=== PATIENT | female | born 1955 | race Caucasian/White ===

== ENCOUNTER 2016-07-04 05:06 | Day surgery (SDC) | payer OTHER ==
[~2016-07-04] VITALS: Ht 167.6 cm; Wt 59.4 kg
--- NOTE | ~2016-07-04 | OP ---
PATIENT NAME: SUSY HAM MEDICAL RECORD: [id number] :59 LOCATION:D.OPS ADMISSION DATE: SURGEON: VALERIE DIAL MD DATE OF OPERATION: 07/04/2016 PREOPERATIVE DIAGNOSES: 1. Right inguinal lymphadenopathy. 2. History of right lower extremity malignant melanoma. 3. Tobacco dependence syndrome. POSTOPERATIVE DIAGNOSES: 1. Right inguinal lymphadenopathy. 2. History of right lower extremity malignant melanoma. 3. Tobacco dependence syndrome. PROCEDURE: Excisional right inguinal lymph node biopsy. SURGEON: Valerie Dial MD. REPORT OF PROCEDURE: The patient's right groin was prepped and draped in sterile fashion. An oblique incision was made overlying the large inguinal lymph node. Electrocautery was used to dissect through the subcutaneous tissues and using electrocautery, we came around this large mass. The lymph node was about 2.5-3 cm in greatest diameter. Once the mass was completely excised, it was sent off as a permanent specimen to pathology. The wound was irrigated out with normal saline and any bleeding that was found was treated with electrocautery or tied off with 3-0 silks. At the conclusion of the case, there was no sign of any active bleeding and there was no sign of any further enlarged lymphadenopathy. The subcutaneous tissues were reapproximated with interrupted 3-0 Vicryls and the skin was closed with running subcutaneous 5-0 Monocryl. A 10 mL of 0.25% Marcaine with epinephrine was infused into the surrounding tissues and the wound was dressed appropriately. COMPLICATIONS: None. CONDITION: Stable. ANESTHESIA: General endotracheal and local. BLOOD LOSS: Minimal. TRANSINT:[id number] Voice Confirmation ID: [id number] DOCUMENT ID: [id number] VALERIE DIAL MD CC: MONSERRAT CANCHOLA DO [id number] DICTATION DATE: 07/04/16 0845 EVENT SECURITY OFFICER: 07/04/16 1803 [facility] 07/04/[address] [place] [id number] [place] [id number]
[2016-07-04 06:14] VITALS: BP 105/65; Ht 167.6 cm; Wt 59.4 kg
[2016-07-04 07:41] LABS: BASOPHILS 0.6 % (0-2); EOSINOPHILS 4.2 % (0-7); HEMATOCRIT 42.4 % (36.0-48.0); HEMOGLOBIN 13.7 g/dL (12-16); IMMATURE GRANULOCYTES 0.1 % (0-5); LYMPHOCYTES 35.9 % (15-50); MCH 31.1 pg (26.0-34.0); MCHC 32.3 g/dL (31.0-37.0); MCV 96.4 fL (80.0-100.0); MEAN PLATELET VOLUME 11.1 fL (7.4-10.4); NEUTROPHILS 52.2 % (40-80); PLATELET COUNT 173 10x3/uL (130-400); RDW 13.7 % (11.5-14.5); WBC 7.2 10x3/uL (4.8-10.8)
[2016-07-04 07:48] LABS: ANION GAP 13.1 mmol/L (8-16); CALCIUM 8.4 mg/dL (8.5-10.1); CARBON DIOXIDE 28.1 mmol/L (21.0-32.0); CREATININE - SERUM 0.9 mg/dL (0.6-1.3); POTASSIUM - SERUM 4.2 mmol/L (3.5-5.1)
[2016-07-04 07:49] LABS: APTT 32.4 SECONDS (22.8-39.4); INR 0.98 (0.85-1.17); PROTIME 12.8 SECONDS (11.6-15.0)
[2016-07-04] MEDS ORDERED: HYDROCODONE-APA1 TAB PO (08:37)
--- NOTE | 2016-07-04 10:24 | NUR ---
0945 IV DC WITH CATHER TIP INTACT
== END 2016-07-04 10:00 | disposition home or self-care (01) ==
LOC: D.OPS 05:06 → D.PAN 07:30 → D.OPS 07:30
PROVIDERS: Anesthesiology; Surgery
DX: R59.0 Localized enlarged lymph nodes (principal); F17.200 Nicotine dependence, unspecified, uncomplicated; Z85.820 Personal history of malignant melanoma of skin; Z01.812 Encounter for preprocedural laboratory examination

== ENCOUNTER → 2016-12-01 13:11 | Outpatient (CLI) | payer OTHER ==
[2016-07-04 06:14] VITALS: BMI 21.1
[~2016-12-01 13:11] MED LIST: HYDROCODONE-APA1 TAB PO
== END | disposition home or self-care (01) ==
LOC: D.LABREF 13:11
DX: C43.9 Malignant melanoma of skin, unspecified (principal); R59.0 Localized enlarged lymph nodes

== ENCOUNTER 2017-12-04 06:58 | Day surgery (SDC) | payer OTHER ==
[~2017-12-04] VITALS: Ht 320 cm; Wt 60.8 kg
--- NOTE | ~2017-12-04 | OP ---
PATIENT NAME: SUSY HAM MEDICAL RECORD: [id number] :59 LOCATION:DJACKELIN ADMISSION DATE: SURGEON: KEVIN DIAL MD DATE OF OPERATION: 12/04/2017 PREOPERATIVE DIAGNOSES: 1. Metastatic malignant melanoma to the right groin. 2. Tobacco dependence syndrome. 3. Right inguinal lymphadenopathy. POSTOPERATIVE DIAGNOSES: 1. Metastatic malignant melanoma to the right groin. 2. Tobacco dependence syndrome. 3. Right inguinal lymphadenopathy. PROCEDURE: Excision of right axillary lymph nodes times 5. SURGEON: Kevin Dial MD REPORT OF PROCEDURE: The patient's right groin was prepped and draped in sterile fashion. An old skin incision was reopened overlying these masses. Using electrocautery, we came around all of these enlarged lymphatic tissues totaling 5. Once all of these tissues were completely excised and the wound was irrigated out and care was taken to assure there was no sign of any bleeding, the subcutaneous tissues were then reapproximated with interrupted 3-0 Vicryl and the skin was closed with running subcutaneous 5-0 Monocryl. A 10 mL of 0.25% Marcaine with epinephrine was infused into the surrounding tissues and the wound was dressed appropriately. COMPLICATIONS: None. CONDITION: Stable. ANESTHESIA: General endotracheal and local. BLOOD LOSS: Minimal. TRANSINT:[id number] Voice Confirmation ID: [id number] DOCUMENT ID: [id number] KEVIN DIAL MD at 1409 CC: TUAN RAYO MD and MONSERRAT CANCHOLA [id number] DICTATION DATE: 12/04/17 1055 OPERATIONS BUSINESS PARTNER: 12/04/17 1101 [facility] 12/04/[address] [address]
[~2017-12-04 06:58] MED LIST changes: +ALENDRONATE SOD70 MG PO; +ANORO ELLIPTA1 EACH INH; +IBUPROFEN800 MG PO; +NEURONTIN 300300 MG PO
[2017-12-04 08:27] LABS: BASOPHILS 0.3 % (0-2); EOSINOPHILS 2.3 % (0-7); HEMOGLOBIN 14.4 g/dL (12-16); IMMATURE GRANULOCYTES 0.2 % (0-5); MCH 31.5 pg (26.0-34.0); MCHC 33.5 g/dL (31.0-37.0); MCV 94.1 fL (80.0-100.0); MEAN PLATELET VOLUME 10.3 fL (7.4-10.4); MONOCYTES 11.4 % (2-11); NEUTROPHILS 63.8 % (40-80); PLATELET COUNT 164 10x3/uL (130-400); RBC 4.57 10x6/uL (4.00-5.40); RDW 13.7 % (11.5-14.5); WBC 6.1 10x3/uL (4.8-10.8)
[2017-12-04 08:39] LABS: APTT 32.4 SECONDS (22.8-39.4); INR 1.03 (0.85-1.17); PROTIME 13.1 SECONDS (11.6-15.0)
[2017-12-04 08:41] LABS: ALBUMIN 3.3 g/dL (3.4-5.0); ANION GAP 12.7 mmol/L (8-16); BILIRUBIN - TOTAL 0.28 mg/dL (0.2-1.3); CALCIUM 8.3 mg/dL (8.5-10.1); CARBON DIOXIDE 26.7 mmol/L (21.0-32.0); POTASSIUM - SERUM 4.4 mmol/L (3.5-5.1)
[2017-12-04 08:43] VITALS: BP 126/70; Ht 320 cm; Wt 60.8 kg
[2017-12-04] MEDS ORDERED: NORCO 10-325 TA1 TAB PO (10:52)
== END 2017-12-04 12:42 | disposition home or self-care (01) ==
LOC: D.OPS 06:58 → D.PAN 09:00 → D.OPS 09:00
PROVIDERS: Surgery
DX: C77.4 Secondary and unspecified malignant neoplasm of inguinal and lower limb lymph nodes (principal); F17.200 Nicotine dependence, unspecified, uncomplicated; Z01.812 Encounter for preprocedural laboratory examination

== ENCOUNTER 2018-03-04 13:41 | Inpatient (IN) | payer OTHER ==
[~2018-03-04] VITALS: Ht 167.6 cm; Wt 59.1 kg
[2018-03-04] VITALS (7 sets, daily range): BP systolic 92–103; BP diastolic 55–70
--- NOTE | ~2018-03-04 | CN ---
PATIENT NAME:SUSY HAM MEDICAL RECORD: [id number] : 59 LOCATION:ChelsieED[facility].E05- ADMIT DATE: 03/04/18 ACCOUNT: [id number] CONSULTING PHYSICIAN: KRISTAL QUINN MD REFERRING PHYSICIAN: TED HWANG MD DATE OF CONSULTATION: 03/04/2018 DIAGNOSES: 1. Elevated troponin compatible with non-Q-wave myocardial infarction. 2. Chest tightness. 3. Smoking history. 4. Malignant melanoma undergoing treatment by Dr. Fish, chemotherapy. HISTORY OF PRESENT ILLNESS: Ms. Ham has no previous cardiac history. She presents with generalized weakness, but she has been having chest pressure, chest tightness and shortness of breath. Her troponin is mildly elevated. PHYSICAL EXAMINATION: GENERAL APPEARANCE: Well-nourished, well-developed, appears stated age. Level of distress, comfortable. PSYCHIATRIC: Mental status, alert, normal affect. Orientation, oriented to time, place and person. EYES: Lids and conjunctiva, noninjected. No discharge, no pallor. ENT: Lips, teeth, gums, normal dentition. Oropharynx, no cyanosis, no pallor. NECK: Carotid arteries, bilateral normal upstroke, no bruits, no thrills. JUGULAR VEINS: No jugular venous pressure or distention. CERVICAL LYMPH NODES: Nontender, nonenlarged. THYROID: Not enlarged. Nontender. No nodules. LUNGS: Respiratory effort, unlabored. CHEST: Normal curvature. No thoracic deformity. No chest wall tenderness. Percussion, resonant. Auscultation, clear. No wheezes, no rales, no rhonchi. CARDIOVASCULAR: Precordial exam, nondisplaced. No heaves or pericardial thrills. Rate and rhythm, regular. Heart sounds, normal S1, normal S2. No S3, no gallop, no rub. Systolic murmur, not heard. Diastolic murmur, not heard. EXTREMITIES: No cyanosis, no edema. Peripheral pulses, full and equal in all extremities, except as noted. No bruits appreciated. ABDOMEN: Soft, nondistended. Normal aorta. No bruit. Nontender. No masses. Liver, nontender, no hepatomegaly. Spleen, nontender, no splenomegaly. MUSCULOSKELETAL: No joint tenderness. No joint swelling. No erythema. NEUROLOGICAL: Normal gait, normal strength, normal tone. SKIN: Warm and dry. OVERALL IMPRESSION: Elevated troponin. At this time, her cancer prognosis is overall good with chemotherapy and she has been told by Dr. Fish that she has no impending mortality from this. Hence we will proceed with coronary angiography. Further care depends upon the findings of the angiography. Her pulse rate is low at 62. Hence, we will not start beta-flores therapy. She has been told in the past that she has hyperlipidemia, but has not tolerated statin therapy, hence we will not initiate statin therapy as well. Her blood pressure is 100/56. We will only institute aspirin. Give Plavix tomorrow after the cardiac catheterization if intervention is undertaken. TRANSINT:[id number] Voice Confirmation ID: [id number] DOCUMENT ID: [id number] CONSULT REPORT [id number] SUSY HAM JEFFREY MD CC: [id number] DICTATION DATE: 03/04/18 1628 BENCH EXAMINER: 03/04/18 2321 ADM IN [facility] [address] [place] [id number]
--- NOTE | ~2018-03-04 | HEMODYNAMI ---
PATIENT:SUSY HAM MEDICAL RECORD: [id number] : 59 [facility]# [id number] ADMISSION DATE: 03/04/18 Generatedon:03/05/20188:59 Patient name: SUSY HAM Patient #: [id number] SSN: : 1955 Date of study: 03/05/2018 Page: Of Hemodynamic Procedure Report Patient Data Patient Demographics Procedure consent was obtained First Name: SUSY Gender: Female Last Name: FATOUMATA : 1955 [facility] Initial: BRIAN Age: 62 year(s) Patient #: [id number] Race: Unknown Additional ID: [id number] Contact details [address]: [address] [place] [address] State: [place] City: [place] Zip code: [address] Admission Admission Data Admission Date: 03/04/2018 Admission Time: 17:41 Room #: D.E05 Lab Results Lab Result Date: 03/05/2018 Lab Result Time: 0:00 Biochemistry Name Units Result Min Max BUN mg/dl 27 --(----)-* 7 18 Creatinine mg/dl 1.1 --(--*-)-- 0.6 1.3 CBC Name Units Result Min Max Hemoglobin g/dl 16.3 --(--*-)-- 13.5 17.5 Procedure Procedure Types Cath Procedure Diagnostic Procedure [facility] w/Coronaries Procedure Description Procedure Date Procedure Date: 03/05/2018 Procedure Start Time: 8:46 Procedure End Time: 8:56 Procedure Staff Name Function Cecelia Mattson RT Monitor Brittnee Fitzgerald RT Scrub Americo Reddy RN Nurse Sean Merino RN Restaurant Assistant Manager Jose Bravo MD Performing Physician Procedure Data Cath Procedure Fluoroscopy Diagnostic fluoroscopy Total fluoroscopy Time: 1.1 time: 1.1 min min Diagnostic fluoroscopy Total fluoroscopy dose: 155 dose: 155 mGy mGy Contrast Material Contrast Material Type Amount (ml) Isovue 300 40 Entry Location Entry Primary Successful Side Size Upsize Upsize Entry Closure Succes sful Closure Location (Fr) 1 (Fr) 2 (Fr) Remarks Device Remarks Femoral Left 6 Fr Exoseal artery Short Estimated blood loss: 5 ml Diagnostic catheters Device Type Used For End Catheter Placement MULTIPACK Pigtail 5 Fr LV Angiography catheter MULTIPACK JL 4.0 5Fr Left Coronary catheter Angiography MULTIPACK 3DRC 5Fr Right Coronary catheter Angiography Procedure Complications No complications Procedure Medications Medication Administration Route Dosage Oxygen etCO2 Nasal cannula 2 l/min Lidocaine 2% added to field 20 Heparin Flush Bag added to field 2 bags (1000units/500ml NS) 0.9% NaCl I.V. 100 ml/hr Versed I.V. 1 mg Fentanyl I.V. 50 mcg Hemodynamics Rest HGB: 16.3 (g/dl) Heart Rate: 73 (bpm) Pressure Samples Time Site Value (mmHg) Purpose Heart Use Rate(bpm) 8:48 LV 79/7,11 Snapshot 63 Snapshots Pre Cath Intra NCS Post Cath Vital Signs Time Heart Resp SPO2 etCO2 NIBP Rhythm Pain Sedation Rate (ipm) (%) (mmHg) (mmHg) Status Level (bpm) 8:38:37 71 18 100 35.7 91/73(82) NSR 0 (11) 10(A) , No pain 8:42:37 73 13 100 33.5 87/61(73) NSR 0 (11) 10(A) , No pain 8:46:34 76 12 100 29.8 90/60(72) NSR 0 (11) 10(A) , No pain 8:50:34 77 11 98 34.2 87/57(69) NSR 0 (11) 9(A) , No pain 8:54:27 69 12 100 22.3 100/74(85) NSR 0 (11) 10(A) , No pain Medications Time Medication Route Dose Verified Delivered Reason Notes Effe ctiveness by by 8:38:07 Oxygen etCO2 2 Jose Driscoll used for Nasal l/min Shelly Reddy RN procedure cannula 8:38:16 Lidocaine 2% added 20ml Jose Garcia for local to vial Shelly Bravo MD anesthetic field 8:38:23 Heparin Flush added 2 Jose Garcia used for Bag to bags Shelly Bravo MD procedure (1000units/500ml field NS) 8:38:30 0.9% NaCl I.V. 100 Jose Driscoll Per ml/hr Shelly Reddy RN physician 8:45:47 Versed I.V. 1 mg Jose Driscoll for Shelly Reddy RN sedation 8:45:52 Fentanyl I.V. 50 Jose Driscoll for mcg Shelly Reddy RN sedation Procedure Log Time Note 8:26:10 Sean Merino RN sent for patient. Start room use. 8:26:12 Time tracking: Regular hours (M-F 7:00 - 5:00) 8:26:16 Plan of Care:Hemodynamics will remain stable., Cardiac rhythm will remain stable., Comfort level will be maintained., Respiratory function will remain adequate., Patient/ family verbilizes understanding of procedure., Procedure tolerated without complication., Recovers from procedure without complications.. 8:26:51 Patient received from ED to CCL 2 Alert and oriented. Tansferred to table in Supine position. 8:26:52 Warm blankets applied, and arjun hugger turned on for patient comfort. 8:26:52 Correct patient and procedure confirmed by team. 8:26:54 Signed procedure consent form obtained from patient. 8:26:55 ECG and BP/O2 sat monitors applied to patient. 8:37:41 Baseline sample Acquired. 8:37:41 Vital chart was started 8:38:07 Oxygen 2 l/min etCO2 Nasal cannula was administered by Americo Reddy RN; used for procedure; 8:38:16 Lidocaine 2% 20ml vial added to field was administered by Jose Bravo MD; for local anesthetic; 8:38:23 Heparin Flush Bag (1000units/500ml NS) 2 bags added to field was administered by Jose Bravo MD; used for procedure; 8:38:30 0.9% NaCl 100 ml/hr I.V. was administered by Americo Reddy RN; Per physician; 8:39:23 Rhythm: sinus rhythm 8:39:25 Full Disclosure recording started 8:39:31 H&P Date Dictated: 03/05/2018 New H&P dictated by physician.. 8:39:33 Pre-procedure instructions explained to patient. 8:39:33 Pre-op teaching completed and patient verbalized understanding. 8:39:35 Family in waiting room. 8:39:36 Patient NPO since Midnight. 8:39:43 Is the patient allergic to Iodine/contrast media? No. 8:39:44 Was the patient premedicated? No 8:39:46 Is patient on blood thinner?No 8:39:47 Patient diabetic? No. 8:39:50 Previous problem with sedation/anesthesia? No ? 8:39:52 Snore? No 8:39:53 Sleep apnea? No 8:39:54 Deviated septum? No 8:39:55 Opens mouth fully? Yes 8:39:55 Sticks out tongue? Yes 8:39:59 Airway obstruction? Yes copd 8:40:39 Dentures? No ? 8:40:44 Pre procedure: right dorsailis pedis pulse Doppler 8:40:59 Pre procedure: left dorsailis pedis pulse Doppler 8:41:04 Patient pain scale 0/10 ?. 8:41:11 IV patent on arrival in left antecubital with 0.9% NaCl at [facility]. 8:41:13 Lab results completed and on chart. 8:41:18 Left groin area was prepped with chlora-prep and draped in sterile fashion 8:41:19 Alarms reviewed by R. N. 8:41:19 Sharps counted by scrub and verified by R.N. 8:43:33 Lab Result : Hemoglobin 16.3 g/dl 8:43:33 Lab Result : Creatinine 1.1 mg/dl 8:43:33 Lab Result : BUN 27 mg/dl 8:44:12 Physician arrived 8:44:12 --------ALL STOP TIME OUT------ 8:44:13 Final Timeout: patient, procedure, and site verified with staff and physician. All members of the team are in agreement. 8:44:15 Left groin site verified by team. 8:44:18 Physical assessment completed. ASA score P 2 - A patient with mild systemic disease as per Jose Bravo MD. 8:44:22 Sedation plan: IV Moderate Sedation Medication:Versed, Fentanyl 8:44:25 Use device set Femoral Dx 8:44:26 ACIST Syringe (69760) opened to sterile field. 8:44:26 Bag Decanter () opened to sterile field. 8:44:27 Medline Cath Pack ([id number]) opened to sterile field. 8:44:27 DIAGNOSTIC WIRE .035 260cm J wire (847018) opened to sterile field. 8:44:28 ACIST Hand Control (86612) opened to sterile field. 8:44:29 ACIST Manifold (41345) opened to sterile field. 8:44:29 DIAGNOSTIC Multipack 5Fr catheter set (PP8665) opened to sterile field. 8:44:30 Tegaderm 4 x 4 (1626W) opened to sterile field. 8:44:51 SHEATH 6FR [place] (DYQ142) opened to sterile field. 8:45:46 Procedure started. 8:45:47 Versed 1 mg I.V. was administered by Americo Reddy RN; for sedation; 8:45:52 Fentanyl 50 mcg I.V. was administered by Americo Reddy RN; for sedation; 8:46:02 Local anesthetic to left femerol artery with Lidocaine 2% by Cecelia LUCAS(R).INITIAL ACCESS ONLY 8:48:25 A 6 Fr Short sheath was inserted into the Left Femoral artery 8:48:32 A MULTIPACK Pigtail 5 Fr catheter was advanced over the wire and used for LV Angiography. 8:48:40 LV hemodynamics recorded. 8:48:41 LV gram done using ADAME 8:48:44 Injector settings: Ml/sec: 5, Volume: 15, 8:48:50 EF : 50 % 8:49:04 Catheter removed. 8:49:16 A MULTIPACK JL 4.0 5Fr catheter was advanced over the wire and used for Left Coronary Angiography. 8:50:06 LCA angiography performed. 8:50:09 Injector settings: Ml/sec: 3, Volume: 6, 8:50:35 Catheter removed. 8:50:41 A MULTIPACK 3DRC 5Fr catheter was advanced over the wire and used for Right Coronary Angiography. 8:51:18 RCA angiography performed. 8:51:21 Injector settings: Ml/sec: 3, Volume: 6, 8:51:56 Catheter removed. 8:52:11 EXOSEAL 6Fr (EX600) opened to sterile field. 8:52:38 Sheath removed intact; hemostasis achieved with Exoseal to the Left Femoral artery. 8:52:40 Procedure ended.(Physican Out) 8:52:47 Fluoroscopy time 01.10 minutes. 8:52:51 Fluoroscopy dose: 155 mGy 8:52:51 Flurop Dose total: 155 8:55:33 Contrast amount:Isovue 300 40ml. 8:55:35 Sharps counted by scrub and verified by R.N. 8:55:38 Insertion/operative site no bleeding no hematoma. 8:55:42 Post-op/insertion site Left Femoral artery dressed using a 4 x 4 and Tegaderm. 8:55:46 Post left femerol artery:stable 8:55:48 Post Procedure Pulses reassessed and unchanged 8:55:50 Post procedure rhythm: unchanged. 8:55:53 Estimated blood loss: 5 ml 8:55:55 Post procedure instruction explained to patient.Patient verbalizes understanding. 8:55:55 Patient needs reinforcement of post procedure teaching. 8:56:04 Procedure and supply charges have been captured, reviewed, submitted and are correct. 8:56:08 Procedure Complication : No complications 8:56:12 Vital chart was stopped 8:56:12 See physician's report for complete and final results. 8:56:15 Report given to Pre/Post Procedure Room. 8:56:18 Patient transfered to Pre/Post Procedure Room with Stretcher. 8:56:21 Procedure ended. 8:56:21 Full Disclosure recording stopped 8:56:25 End room use (Document Last) Device Usage Item Name Manufacture Quantity Catalog Hospital Part Current Minimal L ot# / Number Charge Number Stock Stock Serial# Code ACIST Acist 1 89873 [id number] 268895 802386 20 Syringe Medical (83939) Systems Inc Bag Microtek 1 2001S 310993 99234 158571 5 Decanter Medical Inc. () Medline Medline 1 [id number] 680065 77630 554290 5 Cath Pack ([id number]) DIAGNOSTIC St Lester 1 673071 428505 104297 215014 30 WIRE .035 260cm J wire (755126) ACIST Hand Acist 1 36264 530174 428566 514010 5 Control Medical (61458) Systems Inc ACIST Acist 1 80183 633367 118849 027329 5 Manifold Medical (48310) Systems Inc DIAGNOSTIC Cardinal 1 NO9097 400880 73727 311022 30 Multipack Health 5Fr catheter set (UN4074) Tegaderm 4 3M 1 1626W 575349 334830 248312 5 x 4 (1626W) SHEATH 6FR Terumo 1 KWL743 883186 207977 310218 40 [place] (DYT158) MULTIPACK Cardinal 1 490220 5 Pigtail 5 Health Fr catheter MULTIPACK Cardinal 1 007534 5 JL 4.0 5Fr Health catheter MULTIPACK Cardinal 1 054821 5 3DRC 5Fr Health catheter EXOSEAL 6Fr Cardinal 1 EX600 201125 526615 979831 10 (EX600) Health Signature Audit [place] Stage Time Signature Unsigned Intra-Procedure 03/05/2018 Brittnee Fitzgerald 8:58:53 AM RT(R) Signatures Monitor : Cecelia Mattson Signature : RT Date : Time : [id number] [place] [address]
--- NOTE | ~2018-03-04 | EC ---
PATIENT:SUSY HAM DATE OF SERVICE: 03/04/18 SEX: F MEDICAL RECORD: [id number] DATE OF : 59 LOCATION:D.M2 D.212 AGE OF PATIENT: 62 ADMISSION DATE: 03/04/18 REFERRING PHYSICIAN: INTERPRETING PHYSICIAN: KRISTAL BRAVO MD ECHOCARDIOGRAM REPORT ECHO CHARGES 4 ECHO COMPLETE Date: 03/05/18 CLINICAL DIAGNOSIS: SWELLING/SOB/LOWER EDEMA ECHOCARDIOGRAPHIC MEASUREMENTS (adult normal given) AC root (d.<3.7cm) 3.8 cm LV Septum d (<1.2 cm> 1.4 cm Valve Excursion 1.4 cm LV Septum (systole) 1.5 cm Left Atria (s.<4.0cm> 3.6 cm LVPW d(<1.2cm) 1.2 cm RV (d.<2.3cm) 2.9 cm LVPW (sytole) 1.3 cm LV diastole(<5.6CM) 4.5 cm MV E-F(>70mm/sec) cm LV systole 2.9 cm LVOT Diameter 1.8 cm MV exc.(>10mm) 1.5 cm Est.ejection fraction (50-75%) % DOPPLER: LVIT cm/sec A cm/sec E 67.0 cm/sec LA 60.0 cm/sec RVSP 36 mmHg LVOT cm/sec AOP1/2T m/s Asc. Ao 89 cm/sec RVOT 98 cm/sec RA cm/sec PA cm/sec AV Gradient Peak 3.86 mmHg AV Mean 1.83 mmHg AV Area 2.4 cm MV Gradient Peak 2.70 mmHg MV Mean 1.09 mmHg MV Area cm COMMENTS: Marketing Teacher: Sylvia TORRES Narrow Gauge Operator: 1 Dr. Bravo TAPE# PACS Pericardial Effusion N DATE OF SERVICE: 03/05/2018 PROCEDURE: Echocardiogram. FINDINGS: 1. Left ventricular chamber size is within normal limits. Left ventricular systolic function is normal. Overall ejection fraction estimated at 55%. 2. Left atrium, right atrium, and right ventricle chamber sizes are within normal limits. 3. Valvular structures have normal structure and motion. ECHOCARDIOGRAM REPORT [id number] SUSY HAM BRIAN 4. Doppler interrogation reveals mild tricuspid regurgitation only. No other valvular insufficiency or stenosis. Pulmonary systolic pressure is estimated at 36 mmHg. 5. No evidence of pericardial effusion or left ventricular thrombus. TRANSINT:[id number] Voice Confirmation ID: [id number] DOCUMENT ID: [id number] KRISTAL BRAVO MD CC: [id number] DICTATION DATE: 03/05/18 1257 HL7 INTERFACE DEVELOPER: 03/05/18 1306 ADM IN [facility] [address] [place] [id number]
--- NOTE | ~2018-03-04 | OP ---
PATIENT NAME: SUSY HAM MEDICAL RECORD: [id number] :59 LOCATION:[facility] ADMISSION DATE:03/04/18 SURGEON: KRISTAL QUINN MD DATE OF OPERATION: 03/05/2018 DATE OF SERVICE: 03/05/2018 PROCEDURES: 1. Left heart catheterization. 2. Selective coronary angiography. 3. Left ventriculogram. INDICATION: Chest pain, elevated troponin. PROCEDURE IN DETAIL: After informed consent was obtained and after a detailed description of risks, benefits as well as alternative therapies, the patient elected to proceed with angiogram and heart catheterization. The left femoral area was prepped and draped in normal sterile fashion. Left femoral artery was cannulated via modified Seldinger technique with placement of 6-Swedish sheath. All catheters exchanged through this sheath. FINDINGS: The left ventriculogram was performed in standard 30-degree ADAME view reveals preserved cardiac wall motion, ejection fraction of 50%. SELECTIVE CORONARY ANGIOGRAPHY: Left main, left anterior descending, left circumflex, right coronary artery are all smooth-walled vessels with no angiographic evidence of coronary artery disease. OVERALL IMPRESSION: 1. No angiographic evidence of coronary artery disease. 2. Normal left heart pressures. 3. Normal left ventricular systolic function. Her chest pain is noncardiac in etiology. Unknown etiology of the increased troponin, but not secondary to cardiac ischemic disease. TRANSINT:[id number] Voice Confirmation ID: [id number] DOCUMENT ID: [id number] KRISTAL QUINN MD CC: [id number] DICTATION DATE: 03/05/18 1016 WORKFLOW DEVELOPER: 03/05/18 1026 ADM IN [id number] [place] [address]
[~2018-03-04 13:41] MED LIST changes: +NORCO 10-325 TA1 TAB PO
--- NOTE | 2018-03-04 14:07 | NUR ---
fsbs 117. pt stable call light within reach, denies needs, will continue to monitor.
[2018-03-04 14:33] LABS: ANION GAP 14.2 mmol/L (8-16); BILIRUBIN - TOTAL 0.48 mg/dL (0.2-1.3); CALCIUM 8.9 mg/dL (8.5-10.1); CREATININE - SERUM 1.1 mg/dL (0.6-1.3); POTASSIUM - SERUM 4.2 mmol/L (3.5-5.1); PROTEIN - SERUM 7.2 g/dL (6.4-8.2)
[2018-03-04 14:35] LABS: BASOPHILS 0.5 % (0-2); HEMATOCRIT 46.6 % (36.0-48.0); HEMOGLOBIN 16.3 g/dL (12-16); IMMATURE GRANULOCYTES 0.3 % (0-5); LYMPHOCYTES 26.8 % (15-50); MCV 88.8 fL (80.0-100.0); MEAN PLATELET VOLUME 10.6 fL (7.4-10.4); MONOCYTES 8.5 % (2-11); NEUTROPHILS 58.9 % (40-80); RBC 5.25 10x6/uL (4.00-5.40); RDW 13.4 % (11.5-14.5); WBC 7.8 10x3/uL (4.8-10.8)
[2018-03-04 14:50] LABS: PLATELET COUNT 244 10x3/uL (130-400)
[2018-03-04 16:00] LABS: CREATINE KINASE 502 UL (21-215)
[2018-03-04 16:04] LABS: CKMB 8.2 U/L (0.0-3.6)
[2018-03-04 16:16] LABS: TROPONIN-I 0.083 ng/mL (0.000-0.060)
--- NOTE | 2018-03-04 16:36 | NUR ---
PT STABLE, CALL LIGHT WITHIN REACH, DENIES NEEDS, FAMILY AT BEDSIDE, WILL CONTINUE TO MONITOR.
[2018-03-04 17:06] LABS: CREATINE KINASE 419 UL (21-215)
[2018-03-04 17:08] LABS: TROPONIN-I 0.085 ng/mL (0.000-0.060)
--- NOTE | 2018-03-04 18:32 | NUR ---
PT STABLE, CALL LIGHT WITHIN REACH, DENIES NEEDS, AT BEDSIDE, WILL CONTINUE TO MONITOR.
--- NOTE | 2018-03-04 20:10 | NUR ---
PT STABLE, CALL LIGHT WITHIN REACH, DENIES NEEDS, CALL LIGHT WITHIN REACH, WILL CONTINUE TO MONITOR,
--- NOTE | 2018-03-04 22:10 | NUR ---
PT STABLE, CALL LIGHT WITHIN REACH, DENIES NEEDS, AT BEDSIDE, LINENS AND COMFORTABLE CHAIR PROVIDED. WILL CONTINUE TO MONITOR.
[2018-03-04 22:39] LABS: APPEARANCE CLOUDY (CLEAR); COLOR YELLOW (YELLOW); GLUCOSE NEGATIVE (NEGATIVE); KETONE SMALL mg/dL (NEGATIVE); NITRITE POSITIVE (NEGATIVE); PROTEIN 2+ mg/dL (NEGATIVE)
[2018-03-04 22:40] LABS: BACTERIA MANY /hpf (NONE SEEN); BILIRUBIN NEGATIVE (NEGATIVE); EPITHELIAL CELLS 0-5 /hpf (0-5); RED CELLS - URINE 0-5 /hpf (0-5); UROBILINOGEN NORMAL (NORMAL); WHITE CELLS - URINE >50 /hpf (0-5)
[2018-03-05 01:11] VITALS: BP 98/64
--- NOTE | 2018-03-05 01:11 | NUR ---
PT STABLE, RESTING IN ROOM, RISE AND FALL OF CHEST NOTED, VITALS WNL. CALLLIGHT WITHIN REACH, AT BEDSIDE, REPORT HANDED OFF TO PAPITO PALOMARES.
[2018-03-05 03:30] VITALS: BP 98/61
--- NOTE | 2018-03-05 03:32 | NUR ---
PT GIVEN PILLOW TO PROP UP FEET, DENIES ANY FURTHER NEEDS, VS WNL, RR EVEN AND UNLABORED, AT BEDSIDE. WILL CONTINUE TO MONITOR.
--- NOTE | 2018-03-05 04:15 | NUR ---
CONSENT FORMS SIGNED BY PT.
[2018-03-05 04:30] VITALS: BP 100/54
--- NOTE | 2018-03-05 05:16 | NUR ---
PT RESTING, RR EVEN AND UNLABORED, VSS, CALL LIGHT WITHIN REACH, AT BEDSIDE. WILL CONTINUE TO MONITOR.
[2018-03-05 08:26] LABS: BASOPHILS 0.3 % (0-2); EOSINOPHILS 7.2 % (0-7); HEMATOCRIT 44.4 % (36.0-48.0); HEMOGLOBIN 15.7 g/dL (12-16); IMMATURE GRANULOCYTES 0.2 % (0-5); LYMPHOCYTES 29.6 % (15-50); MCH 31.3 pg (26.0-34.0); MCHC 35.4 g/dL (31.0-37.0); MCV 88.6 fL (80.0-100.0); MEAN PLATELET VOLUME 10.7 fL (7.4-10.4); MONOCYTES 9.4 % (2-11); NEUTROPHILS 53.3 % (40-80); PLATELET COUNT 217 10x3/uL (130-400); RBC 5.01 10x6/uL (4.00-5.40); RDW 13.4 % (11.5-14.5); WBC 5.9 10x3/uL (4.8-10.8)
[2018-03-05 08:31] LABS: ALBUMIN 2.9 g/dL (3.4-5.0); ANION GAP 16.1 mmol/L (8-16); BILIRUBIN - TOTAL 0.48 mg/dL (0.2-1.3); CALCIUM 8.6 mg/dL (8.5-10.1); CARBON DIOXIDE 23.1 mmol/L (21.0-32.0); POTASSIUM - SERUM 4.2 mmol/L (3.5-5.1); PROTEIN - SERUM 6.8 g/dL (6.4-8.2)
[2018-03-05 08:37] VITALS: BMI 21.7
--- NOTE | 2018-03-05 09:34 | NUR ---
GLUCOSE 51 ON AM LABS. RECHECKED FSBS AND IT WAS 44. PT GIVEN ORANGE JUICE. WILL MONITOR AND RECHECK. PT'S AT BEDSIDE.
--- NOTE | 2018-03-05 10:03 | NUR ---
ECHO COMPLETED. LEFT GROIN DRESSING C/D/I. NO S/S OF BLEEDING NOTED. NO HEMATOMA.
--- NOTE | 2018-03-05 10:20 | NUR ---
RECHECK FSBS 48. PT HOB INC TO 30 DEGREES. LEFT GROIN DRESSING C/D/I. NO S/S OF HEMATOMA NOTED. PT GIVEN ANOTHER ORANGE JUICE AND SANDWICH TO EAT.
--- NOTE | 2018-03-05 10:21 | NUR ---
DR. HWANG AT BEDSIDE.
--- NOTE | 2018-03-05 10:48 | NUR ---
REPEAT FSBS 91.
--- NOTE | 2018-03-05 11:10 | NUR ---
BEDREST IS COMPLETE. LEFT GROIN DRESSING C/D/I. NO S/S OF HEMATOMA NOTED.
--- NOTE | 2018-03-05 11:46 | NUR ---
REPORT CALLED TO PAPITO CHURCH.
[2018-03-05 12:22] VITALS: BP 84/57; Ht 167.6 cm; Wt 59.1 kg
--- NOTE | 2018-03-05 12:38 | NUR ---
ARRIVED FROM ER. FAMILY AT BEDSIDE. SEE ASSESSMENT FOR FURTHER EVAL.
--- NOTE | 2018-03-05 19:15 | NUR ---
ALERT/AWAKE ORIENTED X3. DENIES PAIN OR ANY NEEDS. IV IN L AC INTACT WITH NS INFUSING AT 100ML/HR. RT LISETTEIN EDITA C/D/I. PRESENT IN ROOM.
--- NOTE | 2018-03-05 19:20 | NUR ---
ALERT/AWAKE WATCHING TV. DENIES PAIN OR ANY NEEDS. IV IN RT WRIST INTACT SL. TELEMETRY SHOWS 72 PACED ON THE MONITOR. HAS 02 AT 2L/NC. SOMMER INTACT DRAINING LT YELLOW URINE. HER DAUGHTER IS PRESENT IN ROOM. REQUESTED TOTAL AMOUNT OF URINE VOIDED SINCE ADMISSION.
--- NOTE | 2018-03-05 21:05 | NUR ---
ADMIN SCHED MEDS WITH SIPS OF WATER. DENIES ANY NEEDS.
[2018-03-05 21:08] VITALS: BP 90/41
[2018-03-06 06:04] LABS: BASOPHILS 0.8 % (0-2); EOSINOPHILS 7.1 % (0-7); HEMATOCRIT 41.2 % (36.0-48.0); HEMOGLOBIN 14.4 g/dL (12-16); IMMATURE GRANULOCYTES 0.2 % (0-5); LYMPHOCYTES 34.3 % (15-50); MCH 31.1 pg (26.0-34.0); MEAN PLATELET VOLUME 10.6 fL (7.4-10.4); MONOCYTES 11.6 % (2-11); PLATELET COUNT 212 10x3/uL (130-400); RBC 4.63 10x6/uL (4.00-5.40); RDW 13.2 % (11.5-14.5); WBC 4.9 10x3/uL (4.8-10.8)
[2018-03-06 06:31] LABS: INR 1.19 (0.85-1.17); PROTIME 14.6 SECONDS (11.6-15.0)
[2018-03-06 06:42] LABS: ALBUMIN 2.5 g/dL (3.4-5.0); ANION GAP 14.3 mmol/L (8-16); BILIRUBIN - TOTAL 0.45 mg/dL (0.2-1.3); CALCIUM 8.1 mg/dL (8.5-10.1); CARBON DIOXIDE 23.8 mmol/L (21.0-32.0); CREATININE - SERUM 0.9 mg/dL (0.6-1.3); PHOSPHOROUS 3.6 mg/dL (2.5-4.9); POTASSIUM - SERUM 4.1 mmol/L (3.5-5.1); PROTEIN - SERUM 6.1 g/dL (6.4-8.2); T4 THYROXINE 5.3 ug/dL (4.7-13.3); THYROID STIMULATING HORMONE 0.27 uIU/mL (0.36-3.74)
[2018-03-06 09:01] VITALS: BP 98/51
--- NOTE | 2018-03-06 09:02 | NUR ---
CONSENTS SIGNED. PRE-OPS GIVEN. TO GI LAB BY FREDDY. WILL CONT. PLAN OF CARE.
--- NOTE | 2018-03-06 10:27 | NUR ---
BACK FROM GI LAB. WILL CONT. PLAN OF CARE.
--- NOTE | 2018-03-06 14:00 | NUR ---
URINE SPECIMEN COLLECTED AND TAKEN TO LAB. LEAVING FOR CT BY W/C. WILL MONITOR.
[2018-03-06 14:03] VITALS: BP 93/53
[2018-03-06] MEDS ORDERED: LEVAQUIN750 MG PO (15:51)
[2018-03-06] MEDS ORDERED: ASPIRIN81 MG PO (15:52)
[2018-03-06] MEDS ORDERED: PROTONIX40 MG PO (15:52)
[2018-03-06] MEDS ORDERED: LEXAPRO10 MG PO (15:52)
[2018-03-06] MEDS ORDERED: CARAFATE1 G PO (15:53)
--- NOTE | 2018-03-06 18:39 | NUR ---
IV DCD. DC PLANS GIVEN. ESCORTED TO CAR BY W/C.
--- NOTE | 2018-03-08 10:09 | MORECARE ---
CASE MANAGEMENT DISCHARGE SUMMARY PATIENT: SUSY HAM BRIAN UNIT: [id number] ADM DATE: 03/04/18 AGE: 62 : 59 SEX: F ROOM/BED: D.2120 AUTHOR: GERMANIA BARRERA PHYSICIAN: REFERRING PHYSICIAN: TED HWANG MD DATE OF SERVICE: 03/08/18 Discharge Plan Patient Name: SUSY HAM Facility: [facility]:[place] : 1955 Planned Disposition: Home Anticipated Discharge Date: 03/06/18 Discharge Date: 03/06/2018 Expected LOS: 2 Initial Reviewer: [email or web address] Initial Review Date: 03/08/2018 Generated: 03/08/18 11:09 am Patient Name: SUSY HAM Page 45368 at 1009 All edits/amendments must be made on the electronic document DICTATION DATE: 03/08/18 1009 RAILROAD CAR LETTERER: DM 03/08/18 1009 RPT#: [id number] DC DATE:03/06/18 STATUS: DIS IN [facility] [address] [place] [address] END OF REPORT
== END 2018-03-06 18:45 | disposition home or self-care (01) | DRG 392 ==
LOC: D.ER 13:41 → D.M2 17:41 → D.EDHOLD 17:41 → D.CLR 17:41 → D.M2 03-05 11:49
PROVIDERS: Family Medicine; Internal Medicine Gastroenterology; Internal Medicine Interventional Cardiology; ADMIT Internal Medicine Nephrology
PROC: B2151ZZ Fluoroscopy of Left Heart using Low Osmolar Contrast (ICD-10-PCS; 2018-03-05)
PROC: 4A023N7 Measurement of Cardiac Sampling and Pressure, Left Heart, Percutaneous Approach (ICD-10-PCS; 2018-03-05)
PROC: B2111ZZ Fluoroscopy of Multiple Coronary Arteries using Low Osmolar Contrast (ICD-10-PCS; principal; 2018-03-05 08:26)
PROC: 0DB98ZX Excision of Duodenum, Via Natural or Artificial Opening Endoscopic, Diagnostic (ICD-10-PCS; 2018-03-06)
PROC: 0DB68ZX Excision of Stomach, Via Natural or Artificial Opening Endoscopic, Diagnostic (ICD-10-PCS; 2018-03-06)
PROC: 0DB58ZX Excision of Esophagus, Via Natural or Artificial Opening Endoscopic, Diagnostic (ICD-10-PCS; 2018-03-06)
DX: K20.9 Esophagitis, unspecified (principal); N39.0 Urinary tract infection, site not specified; G93.40 Encephalopathy, unspecified; E87.1 Hypo-osmolality and hyponatremia; F17.213 Nicotine dependence, cigarettes, with withdrawal; R64 Cachexia; E16.2 Hypoglycemia, unspecified; G62.9 Polyneuropathy, unspecified; R63.0 Anorexia; M81.0 Age-related osteoporosis without current pathological fracture; Z68.21 Body mass index [BMI] 21.0-21.9, adult; C43.71 Malignant melanoma of right lower limb, including hip; K29.00 Acute gastritis without bleeding; K44.9 Diaphragmatic hernia without obstruction or gangrene; K29.80 Duodenitis without bleeding; E86.0 Dehydration

== ENCOUNTER → 2018-03-24 15:42 | Outpatient (CLI) | payer OTHER ==
[2018-03-05 12:22] VITALS: BMI 21.0
[~2018-03-24 15:42] MED LIST changes: +ASPIRIN81 MG PO; +CARAFATE1 G PO; +COREG 3.1253.125 MG PO; +LEVAQUIN750 MG PO; +LEXAPRO10 MG PO; +PEPCID AC20 MG PO; +PRAVACHOL20 MG PO; +PROTONIX40 MG PO; +ULTRAM50 MG PO; +ZANAFLEX4 MG PO
== END | disposition home or self-care (01) ==
LOC: D.MRI 15:42
DX: M48.54XA Collapsed vertebra, not elsewhere classified, thoracic region, initial encounter for fracture (principal); M54.16 Radiculopathy, lumbar region

== ENCOUNTER 2018-04-03 09:40 | Inpatient (IN) | payer OTHER ==
[~2018-04-03] VITALS: Ht 167.6 cm; Wt 56.7 kg
[2018-04-03] VITALS (9 sets, daily range): BP systolic 99–128; BP diastolic 36–67; BMI 20.2
[~2018-04-03 09:40] MED LIST changes: -COREG 3.1253.125 MG PO; -PEPCID AC20 MG PO; -PRAVACHOL20 MG PO; -ULTRAM50 MG PO; -ZANAFLEX4 MG PO
[2018-04-03 10:01] LABS: APPEARANCE HAZY (CLEAR); BILIRUBIN NEGATIVE (NEGATIVE); COLOR YELLOW (YELLOW); GLUCOSE NEGATIVE (NEGATIVE); KETONE NEGATIVE (NEGATIVE); NITRITE NEGATIVE (NEGATIVE); PROTEIN NEGATIVE (NEGATIVE); SPECIFIC GRAVITY 1.015 (1.005-1.020); UROBILINOGEN NORMAL (NORMAL)
--- NOTE | 2018-04-03 10:04 | NUR ---
FSBS= 82; EDP, DOWNEN INFORMED.
[2018-04-03] MEDS ORDERED: COREG 3.1253.125 MG PO (10:10)
[2018-04-03] MEDS ORDERED: ULTRAM50 MG PO (10:10)
[2018-04-03] MEDS ORDERED: ZANAFLEX4 MG PO (10:10)
[2018-04-03] MEDS ORDERED: PRAVACHOL20 MG PO (10:10)
[2018-04-03] MEDS ORDERED: PEPCID AC20 MG PO (10:11)
[2018-04-03 11:03] LABS: ALBUMIN 3.2 g/dL (3.4-5.0); ALKALINE PHOSPHATASE 67 U/L (46-116); ALT (SGPT) 30 U/L (10-68); CALC OSMOLALITY 256 mosm/kg (275-300); CALCIUM 8.7 mg/dL (8.5-10.1); CARBON DIOXIDE 21.7 mmol/L (21.0-32.0); CHLORIDE - SERUM 92 mmol/L (98-107); GLUCOSE 86 mg/dL (74-106); POTASSIUM - SERUM 3.8 mmol/L (3.5-5.1); PROTEIN - SERUM 7.2 g/dL (6.4-8.2); SODIUM 127 mmol/L (136-145); UREA NITROGEN 22 mg/dL (7-18); eGFR NON AFRICAN AMERICAN 60 mL/min (90-120)
[2018-04-03 11:22] LABS: CKMB 9.7 U/L (0.0-3.6); LIPASE 91 U/L (73-393); MAGNESIUM - SERUM 1.5 mg/dL (1.8-2.4)
[2018-04-03 11:23] LABS: CREATINE KINASE 1125 UL (21-215)
[2018-04-03 11:34] LABS: TROPONIN-I 0.071 ng/mL (0.000-0.060)
--- NOTE | 2018-04-03 11:45 | NUR ---
EDP, KRYSTAL, AT BEDSIDE UPDATING PT AND FAMILY ON POC.
--- NOTE | 2018-04-03 12:40 | NUR ---
REPORT GIVEN TO PAPITO CHIN, UTILIZING SBAR FORMAT.
[2018-04-03 12:48] LABS: BASOPHILS 0.9 % (0-2); HEMATOCRIT 42.9 % (36.0-48.0); HEMOGLOBIN 15.1 g/dL (12-16); IMMATURE GRANULOCYTES 0.4 % (0-5); LYMPHOCYTES 31.5 % (15-50); MCH 30.3 pg (26.0-34.0); MCHC 35.2 g/dL (31.0-37.0); MEAN PLATELET VOLUME 10.9 fL (7.4-10.4); MONOCYTES 10.3 % (2-11); NEUTROPHILS 47.9 % (40-80); PLATELET COUNT 170 10x3/uL (130-400); RBC 4.99 10x6/uL (4.00-5.40); RDW 13.5 % (11.5-14.5); WBC 5.5 10x3/uL (4.8-10.8)
--- NOTE | 2018-04-03 13:10 | NUR ---
POC GLUCOSE 36, PATIENT GIVEN OJ AND SANDWICH TRAY. FAMILY STATES SHE HASN'T EATEN IN 3 DAYS.
--- NOTE | 2018-04-03 14:25 | NUR ---
RECHKEYA FSBS - 105. ERP INFORMED.
--- NOTE | 2018-04-03 15:11 | NUR ---
PT ARRIVED TO ROOM VIA STRETCHER. PT IS ABLE TO RELOCATE SELF ONTO ROOM BED. PT REPORTS NAUSEA AND VOMITING. SPOUSE IS AT BEDSIDE. VSS. SEE FLOWSHEET. SCDS PLACED ON BILATERAL LOWER EXTREMITIES AND TURNED ON. BED IS IN THE LOWEST POSITION. CALL LIGHT AND BEDSIDE TABLE ARE WITHIN REACH. WILL CONT TO MONITOR.
[2018-04-03 17:42] LABS: CREATINE KINASE 1162 UL (21-215)
[2018-04-03 17:45] LABS: TROPONIN-I 0.062 ng/mL (0.000-0.060)
--- NOTE | 2018-04-03 17:56 | NUR ---
MUSEUM INFORMATICS SPECIALIST NOTIFIED TO VERIFY LEXAPRO MEDICATION FOR PT. WILL WAIT FOR VERFICATION PRIOR TO ADMINISTERING.
--- NOTE | 2018-04-03 18:04 | NUR ---
SPEED BELT SANDER NOTIFIED OF NEED OF VERIFICATION OF MEDICATION.
--- NOTE | 2018-04-03 20:30 | NUR ---
PT ALERT AND ORIENTED WHEN ENTERING THE ROOM. FSBS 101. AT BEDSIDE. RIGHT AC INFUSING AND PATENT. PT COMPLAINS OF PAIN IN THE GROIN AREAS. CALL LIGHT IN REACH.
--- NOTE | 2018-04-03 22:00 | NUR ---
PT LYING IN BED, NO SIGNS OF DISTRESS. ALERT AND ORIENTED, AT BEDSIDE. PT REPORTS SOME NAUSEA, EMESIS BAG PROVIDED, ZOFRAN GIVEN. NO OTHER NEEDS OR COMPLAINTS AT THIS TIME. CL IN REACH, WILL CONTINUE TO MONITOR
[2018-04-04] VITALS: BP 113/65
[2018-04-04 00:05] LABS: CKMB 5.5 U/L (0.0-3.6)
[2018-04-04 00:06] LABS: CREATINE KINASE 977 UL (21-215)
[2018-04-04 03:00] VITALS: BP 105/57
[2018-04-04 05:31] LABS: BASOPHILS 0.6 % (0-2); EOSINOPHILS 11.4 % (0-7); HEMOGLOBIN 13.5 g/dL (12-16); IMMATURE GRANULOCYTES 0.2 % (0-5); LYMPHOCYTES 34.2 % (15-50); MCH 30.4 pg (26.0-34.0); MCHC 35.5 g/dL (31.0-37.0); MCV 85.6 fL (80.0-100.0); MEAN PLATELET VOLUME 10.5 fL (7.4-10.4); MONOCYTES 10.3 % (2-11); NEUTROPHILS 43.3 % (40-80); PLATELET COUNT 172 10x3/uL (130-400); RBC 4.44 10x6/uL (4.00-5.40); RDW 13.3 % (11.5-14.5); WBC 5.4 10x3/uL (4.8-10.8)
[2018-04-04 06:13] LABS: ALBUMIN 2.5 g/dL (3.4-5.0); ALKALINE PHOSPHATASE 52 U/L (46-116); ALT (SGPT) 24 U/L (10-68); BILIRUBIN - TOTAL 0.53 mg/dL (0.2-1.3); CALC OSMOLALITY 256 mosm/kg (275-300); CALCIUM 7.7 mg/dL (8.5-10.1); CARBON DIOXIDE 20.1 mmol/L (21.0-32.0); CHLORIDE - SERUM 97 mmol/L (98-107); CKMB 4.2 U/L (0.0-3.6); CREATINE KINASE 874 UL (21-215); CREATININE - SERUM 0.9 mg/dL (0.6-1.3); GLUCOSE 102 mg/dL (74-106); MAGNESIUM - SERUM 1.3 mg/dL (1.8-2.4); POTASSIUM - SERUM 3.9 mmol/L (3.5-5.1); PROTEIN - SERUM 5.8 g/dL (6.4-8.2); SODIUM 128 mmol/L (136-145); TROPONIN-I 0.032 ng/mL (0.000-0.060); UREA NITROGEN 12 mg/dL (7-18); eGFR NON AFRICAN AMERICAN 68 mL/min (90-120)
--- NOTE | 2018-04-04 08:05 | NUR ---
PT RESTING QUIETLY IN BED WITH SPOUSE AT BEDSIDE. ALERT AND ORIENTED. NO ACUTE DISTRESS NOTED. IV TO RIGHT AC WITH D5NS @ 125ML/HR INFUSING VIA PUMP. SITE WITHOUT REDNESS OR EDEMA. DENIES PAIN AT THIS TIME, "JUST WEAK". ENCOURAGED TO CALL WITH NEEDS. CL WITHIN REACH. CONTINUE POC
[2018-04-04 09:10] VITALS: BP 95/60
[2018-04-04 13:02] VITALS: BP 117/71
[2018-04-04 14:20] LABS: UDS - AMPHET NEGATIVE QUAL (NEGATIVE); UDS - BARB NEGATIVE QUAL (NEGATIVE); UDS - BENZO POSITIVE QUAL (NEGATIVE); UDS - COCAINE NEGATIVE QUAL (NEGATIVE); UDS - OPIATE NEGATIVE QUAL (NEGATIVE); UDS - PCP NEGATIVE QUAL (NEGATIVE); UDS - THC NEGATIVE QUAL (NEGATIVE)
[2018-04-04 17:32] VITALS: BP 127/70
[2018-04-04 20:00] VITALS: BP 126/74
--- NOTE | 2018-04-04 20:00 | NUR ---
ALERT RESTIN IN BED RESP UNLABORED DENIES NEEDS AT THIS TIME, AT BEDSIDE CALL LIGHT IN REACH,
[2018-04-05] VITALS: BP 121/63
[2018-04-05 03:00] VITALS: BP 120/59
[2018-04-05 05:56] LABS: ALBUMIN 2.4 g/dL (3.4-5.0); ALKALINE PHOSPHATASE 54 U/L (46-116); ALT (SGPT) 24 U/L (10-68); BILIRUBIN - TOTAL 0.51 mg/dL (0.2-1.3); CALC OSMOLALITY 243 mosm/kg (275-300); CALCIUM 7.2 mg/dL (8.5-10.1); CARBON DIOXIDE 20.5 mmol/L (21.0-32.0); CHLORIDE - SERUM 92 mmol/L (98-107); CREATININE - SERUM 0.7 mg/dL (0.6-1.3); GLUCOSE 82 mg/dL (74-106); POTASSIUM - SERUM 3.4 mmol/L (3.5-5.1); PRE-ALBUMIN 6.4 mg/dL (18.0-35.7); PROTEIN - SERUM 5.8 g/dL (6.4-8.2); SODIUM 123 mmol/L (136-145); eGFR NON AFRICAN AMERICAN 90 mL/min (90-120)
[2018-04-05 06:07] LABS: UREA NITROGEN 4 mg/dL (7-18)
--- NOTE | 2018-04-05 07:15 | NUR ---
MORNING ASSESSMENT COMPLETE. SEE ASSESSMENT FLOWSHEET FOR FURTHER DETAILS. PTL KRANTHI IN BED AAO X4 TO PERSON, PLACE, TIME AND SITUATION. AT BEDSIDE. DENIES PAIN AT THIS TIME. ALL VITALS STABLE. NO CONCERNS. CL IN REACH. SIDE RAILS UP X3 FOR PATEINT SAFETY
[2018-04-05 08:52] VITALS: BP 127/79
[2018-04-05 09:37] LABS: BASOPHILS 0.7 % (0-2); EOSINOPHILS 11.4 % (0-7); HEMOGLOBIN 13.5 g/dL (12-16); IMMATURE GRANULOCYTES 0.4 % (0-5); LYMPHOCYTES 34.3 % (15-50); MCH 30.1 pg (26.0-34.0); MCHC 35.5 g/dL (31.0-37.0); MCV 84.8 fL (80.0-100.0); MEAN PLATELET VOLUME 10.4 fL (7.4-10.4); MONOCYTES 8.2 % (2-11); PLATELET COUNT 181 10x3/uL (130-400); RBC 4.48 10x6/uL (4.00-5.40); RDW 13.5 % (11.5-14.5); WBC 5.6 10x3/uL (4.8-10.8)
[2018-04-05 12:31] VITALS: BMI 20.1
[2018-04-05 13:40] VITALS: BP 122/79
--- NOTE | 2018-04-05 15:16 | MORECARE ---
CASE MANAGEMENT DISCHARGE SUMMARY PATIENT: SUSY HAM BRIAN UNIT: [id number] ADM DATE: 04/03/18 AGE: 62 : 59 SEX: F ROOM/BED: D.2205 AUTHOR: GERMANIA BARRERA PHYSICIAN: REFERRING PHYSICIAN: TED HWANG MD DATE OF SERVICE: 04/05/18 Discharge Plan Patient Name: SUSY HAM Facility: [facility]:[place] : 1955 Planned Disposition: Home Anticipated Discharge Date: Discharge Date: Expected LOS: Initial Reviewer: [email or web address] Initial Review Date: 04/05/2018 Generated: 04/05/18 4:16 pm Patient Name: SUSY HAM Page 11604 at 1516 All edits/amendments must be made on the electronic document DICTATION DATE: 04/05/18 1516 FRUIT HARVESTER: CARRIE 04/05/18 1516 RPT#: [id number] DC DATE: STATUS: ADM IN [facility] [address] [place] [address] END OF REPORT
--- NOTE | 2018-04-05 15:25 | MORECARE ---
CASE MANAGEMENT DISCHARGE SUMMARY PATIENT: SUSY HAM BRIAN UNIT: [id number] ADM DATE: 04/03/18 AGE: 62 : 59 SEX: F ROOM/BED: D.2205 AUTHOR: GERMANIA BARRERA PHYSICIAN: REFERRING PHYSICIAN: TED HWANG MD DATE OF SERVICE: 04/05/18 Discharge Plan Patient Name: SUSY HAM [facility] : 1955 Planned Disposition: Home Anticipated Discharge Date: Discharge Date: Expected LOS: Initial Reviewer: [id number] Initial Review Date: 04/05/2018 Generated: 04/05/18 4:25 pm DCPIA - Discharge Planning Initial Assessment Updated by [email or web address]: Herlinda Jacobo on 04/05/18 3:18 pm * Is the patient Alert and Oriented? Yes * How many steps to enter\exit or inside your home? 1/0 * PCP Dr. Borrero * Pharmacy [facility] * Preadmission Environment Home with Family * ADLs Independent * Equipment Walker * List name and contact numbers for known caregivers / representatives who currently or will assist patient after discharge: Jovanni Ham, * Verbal permission to speak to the caregivers and representatives has been obtained from the patient. Yes * Additional services required to return to the preadmission environment? No * Can the patient safely return to the preadmission environment? Yes * Has this patient been hospitalized within the prior 30 days at any hospital? Yes Last DP export: 04/05/18 2:16 pm Patient Name: SUSY HAM Page 70348 at 1525 All edits/amendments must be made on the electronic document DICTATION DATE: 04/05/181524 TAIL TRIMMER: CARRIE 04/05/181524 RPT#: [id number] DC DATE: STATUS: ADM IN [facility] [address] [place] [address] END OF REPORT
--- NOTE | 2018-04-05 15:36 | MORECARE ---
CASE MANAGEMENT DISCHARGE SUMMARY PATIENT: SUSY HAM BRIAN UNIT: [id number] ADM DATE: 04/03/18 AGE: 62 : 59 SEX: F ROOM/BED: D.2205 AUTHOR: BRUCE,DOC PHYSICIAN: REFERRING PHYSICIAN: TED HWANG MD DATE OF SERVICE: 04/05/18 Discharge Plan Patient Name: SUSY HAM Facility: [facility]:[place] : 1955 Planned Disposition: Home Anticipated Discharge Date: Discharge Date: Expected LOS: Initial Reviewer: [email or web address] Initial Review Date: 04/05/2018 Generated: 04/05/18 4:36 pm Comments DCP- Discharge Planning Updated by [email or web address]: Herlinda Donnell on 04/05/18 2:[address] CM spoke with patient and spouse, Jovanni Ham. She lives home with , and she works at [employer] in [place]. She is independent with ADL's, drives. She does report she has a walker at home. Denies need for home health services at this time. Pt had kyphoplasty on Apr 02. She has a history of malignant melanoma and having chemo. At last hospitalization had EGD which showed ulcers. She was prescribed PPI by GI. Her mother recently passed and she was at her visitation and got lethargic and ultimately combative. Ambulance was called and she was admitted to hospital. reports she has not been taking her Ensure or Pedialyte consistently. They deny needs at this time. Case management will continue to follow and assist as needed. DCPIA - Discharge Planning Initial Assessment Updated by [email or web address]: Herlindajanine Jacobo on 04/05/18 3:18 pm * Is the patient Alert and Oriented? Yes * How many steps to enter\exit or inside your home? 1/0 * PCP Dr. Borrero * Pharmacy [facility] * Preadmission Environment Home with Family * ADLs Independent * Equipment Walker * List name and contact numbers for known caregivers / representatives who currently or will assist patient after discharge: Jovanni Ham, * Verbal permission to speak to the caregivers and representatives has been obtained from the patient. Yes * Additional services required to return to the preadmission environment? No * Can the patient safely return to the preadmission environment? Yes * Has this patient been hospitalized within the prior 30 days at any hospital? Yes Last DP export: 04/05/18 2:25 pm Patient Name: SUSY HAM Page 64587 at 1536 All edits/amendments must be made on the electronic document DICTATION DATE: 04/05/181535 LICENSED ACUPUNCTURIST: CARRIE 04/05/181535 RPT#: [id number] DC DATE: STATUS: ADM IN [facility] [address] [place] [address] END OF REPORT
[2018-04-05 16:00] VITALS: BP 105/69
[2018-04-05 20:30] VITALS: Ht 167.6 cm; Wt 56.7 kg
[2018-04-06 00:01] VITALS: BP 101/61
[2018-04-06 04:51] VITALS: BP 123/70
[2018-04-06 05:48] LABS: ALBUMIN 2.4 g/dL (3.4-5.0); ALKALINE PHOSPHATASE 50 U/L (46-116); ALT (SGPT) 22 U/L (10-68); BILIRUBIN - TOTAL 0.63 mg/dL (0.2-1.3); CALC OSMOLALITY 240 mosm/kg (275-300); CALCIUM 7.3 mg/dL (8.5-10.1); CARBON DIOXIDE 23.2 mmol/L (21.0-32.0); CHLORIDE - SERUM 90 mmol/L (98-107); CREATININE - SERUM 0.7 mg/dL (0.6-1.3); POTASSIUM - SERUM 3.7 mmol/L (3.5-5.1); PROTEIN - SERUM 5.7 g/dL (6.4-8.2); SODIUM 122 mmol/L (136-145); THYROID STIMULATING HORMONE 3.15 uIU/mL (0.36-3.74); UREA NITROGEN 3 mg/dL (7-18); eGFR NON AFRICAN AMERICAN 90 mL/min (90-120)
[2018-04-06 05:54] LABS: GLUCOSE 62 mg/dL (74-106)
--- NOTE | 2018-04-06 07:15 | NUR ---
MORNING ASSESSMENT COMPLETE. SEE ASSESSMENT APRIL FOR FURTHER DETAILS. PT LYING IN BED AAO X4 TO PERSON, PLACE, TIME AND SITUATION. AT BEDSIDE. STATES SHE HAS SEVERE DEPRESSION BUT OK AT THE MOMENT. WILL CONTINUE TO MONITOR. DENIES NEED AT THIS TIME. CL IN REACH. SIDE RAILS UP X3 FOR PAITENT SAFETY
[2018-04-06 08:00] VITALS: BP 128/79
[2018-04-06 09:43] LABS: BASOPHILS 0.5 % (0-2); EOSINOPHILS 9.2 % (0-7); HEMATOCRIT 39.4 % (36.0-48.0); IMMATURE GRANULOCYTES 0.2 % (0-5); LYMPHOCYTES 27.7 % (15-50); MCH 30.4 pg (26.0-34.0); MCHC 35.5 g/dL (31.0-37.0); MCV 85.5 fL (80.0-100.0); MEAN PLATELET VOLUME 10.5 fL (7.4-10.4); MONOCYTES 9.3 % (2-11); NEUTROPHILS 53.1 % (40-80); PLATELET COUNT 193 10x3/uL (130-400); RBC 4.61 10x6/uL (4.00-5.40); RDW 13.4 % (11.5-14.5)
--- NOTE | 2018-04-06 10:46 | NUR ---
CALORIE COUNT LUNCH 04/05/18 >>> BREAKFAST 04/06/18 KCALGM PROTEIN LUNCH DINNER BREAKFAST [id number]
--- NOTE | 2018-04-06 10:50 | NUR ---
NUTRITION F/U CHART REVIEWED, PT VISIT. 24 HOUR CALORIE COUNT TOTAL 310 KCAL, 14 GM PROTEIN. PT ON MEGACE. DECLINES ENSURE OR BOOST AT THIS TIME. WILL CONTINUE TO ENCOURAGE PO INTAKE. RD FOLLOWING
[2018-04-06 12:17] LABS: CA125 10.1 U/mL (0.0-38.1); CEA 3.4 ng/mL (0.0-4.7)
[2018-04-06 12:30] VITALS: BP 128/82
[2018-04-06 16:00] VITALS: BP 103/71
[2018-04-06 21:27] VITALS: BP 135/79
[2018-04-07 06:14] VITALS: BP 108/69
[2018-04-07 06:50] LABS: ALBUMIN 2.4 g/dL (3.4-5.0); ALKALINE PHOSPHATASE 48 U/L (46-116); ALT (SGPT) 23 U/L (10-68); BILIRUBIN - TOTAL 0.49 mg/dL (0.2-1.3); CALCIUM 7.2 mg/dL (8.5-10.1); CARBON DIOXIDE 21.2 mmol/L (21.0-32.0); CHLORIDE - SERUM 93 mmol/L (98-107); CREATININE - SERUM 0.6 mg/dL (0.6-1.3); POTASSIUM - SERUM 3.9 mmol/L (3.5-5.1); PROTEIN - SERUM 5.3 g/dL (6.4-8.2); SODIUM 124 mmol/L (136-145); eGFR NON AFRICAN AMERICAN > 90 mL/min (90-120)
[2018-04-07 07:02] LABS: CALC OSMOLALITY 247 mosm/kg (275-300); GLUCOSE 111 mg/dL (74-106); UREA NITROGEN 5 mg/dL (7-18)
[2018-04-07 09:13] VITALS: BP 107/62
--- NOTE | 2018-04-07 10:00 | NUR ---
PATIENT ASSESSMENT COMPLETE, VS STABLE. IV INTACT. PATIENT HAS NO COMPLAINTS AT THIS TIME. BSCDS ON AND WORKING. FAMILY AT BEDSIDE. CALL LIGHT WITHIN REACH.
--- NOTE | 2018-04-07 12:45 | NUR ---
PATIENT ATE BETTER AT LUNCH THAN AT BREAKFAST. STATED FEELING BETTER AT THIS TIME. IV INTACT. NO COMPLAINTS. FAMILY AT BEDSIDE. CALL LIGHT WITHIN REACH.
[2018-04-07 15:16] VITALS: BP 149/86
--- NOTE | 2018-04-07 15:45 | NUR ---
PATIENT UP AMBULATING IN CRUZ EARLIER. NO COMPLAINTS OR SIGNS OF DISTRESS. IV INTACT . CALL LIGHT WITHINE REACH.
--- NOTE | 2018-04-07 20:00 | NUR ---
ALERT SITTING UP IN BED INCONTIENT OF URINE ASSISTED TO CHAIR BED CHANGED ASSISTED BACK TO BED WEAKNESS NOTED CALL LIGHT IN REACH NO NEEDS VOICED AT THIS TIME
[2018-04-07 22:20] VITALS: BP 89/55
[2018-04-08] VITALS (7 sets, daily range): BP systolic 93–119; BP diastolic 53–63
[2018-04-08 05:18] LABS: ALBUMIN 2.4 g/dL (3.4-5.0); ALKALINE PHOSPHATASE 46 U/L (46-116); ALT (SGPT) 25 U/L (10-68); BILIRUBIN - TOTAL 0.42 mg/dL (0.2-1.3); CALC OSMOLALITY 267 mosm/kg (275-300); CALCIUM 7.3 mg/dL (8.5-10.1); CHLORIDE - SERUM 99 mmol/L (98-107); CREATININE - SERUM 0.7 mg/dL (0.6-1.3); GLUCOSE 126 mg/dL (74-106); PROTEIN - SERUM 6.1 g/dL (6.4-8.2); SODIUM 134 mmol/L (136-145); UREA NITROGEN 6 mg/dL (7-18); eGFR NON AFRICAN AMERICAN 90 mL/min (90-120)
[2018-04-08 05:29] LABS: POTASSIUM - SERUM 2.9 mmol/L (3.5-5.1)
--- NOTE | 2018-04-08 14:44 | NUR ---
NUTRITION F//U CHART REVIEWED. PO INTAKE SEEMS TO HAVE IMPROVED ~ 50% AVERAGE PAST TWO MEALS. WILL CONTINUE TO HONOR FOOD PREFERENCES. MONITOR PT PROGRESS. RD FOLLOWING
--- NOTE | 2018-04-08 20:00 | NUR ---
ALERT SITTING UP IN CHAIR AT BEDSIDE, STATES FEELING A LITTLE BETTER TODAY, AT BEDSIDE, DENIES ANY NEEDS OR CONCERNS AT THIS TIME, KEHINDE GIRON
[2018-04-09 03:38] VITALS: BP 101/59
[2018-04-09 06:47] LABS: ALBUMIN 2.4 g/dL (3.4-5.0); ALKALINE PHOSPHATASE 43 U/L (46-116); CARBON DIOXIDE 23.7 mmol/L (21.0-32.0); CHLORIDE - SERUM 105 mmol/L (98-107); CREATININE - SERUM 0.7 mg/dL (0.6-1.3); GLUCOSE 108 mg/dL (74-106); POTASSIUM - SERUM 3.1 mmol/L (3.5-5.1); PROTEIN - SERUM 5.4 g/dL (6.4-8.2); SODIUM 139 mmol/L (136-145); eGFR NON AFRICAN AMERICAN 90 mL/min (90-120)
[2018-04-09 06:52] LABS: ALT (SGPT) 61 U/L (10-68); CALC OSMOLALITY 276 mosm/kg (275-300); UREA NITROGEN 8 mg/dL (7-18)
--- NOTE | 2018-04-09 08:04 | NUR ---
AWAKE AND ALERT. ORIENTED X3. NO C/O AT THIS TIME. LUNGS ARE CLEAR BILATERALLY, NO COUGH NOTED. SKIN IS INTACT WITHOUT REDNESS. IV TO RIGHT AC IS PATENT WITHOUT REDNESS AT INSERTION SITE. DENIES NEEDS. AT BEDSIDE.
[2018-04-09 08:34] VITALS: BP 111/64; BP 154/69
--- NOTE | 2018-04-09 10:00 | NUR ---
ATE A GOOD BREAKFAST. RESTING QUIETLY IN BED. DENIES NEEDS.
[2018-04-09 11:40] VITALS: BP 104/57
--- NOTE | 2018-04-09 12:30 | NUR ---
LUNCH SERVED IN ROOM. ATE WELL. DENIES NEEDS.
--- NOTE | 2018-04-09 15:00 | NUR ---
AMBULATED IN HALLWAY WITH . DENIES NEEDS. DID WELL WITH AMBULATION.
[2018-04-09 16:00] VITALS: BP 100/57
--- NOTE | 2018-04-09 16:30 | NUR ---
HAD SMALL AMOUNT OF FORMED STOOL AFTER DULCOLAX SUPPOSITORY GIVEN. DENIES NEEDS.
--- NOTE | 2018-04-09 18:24 | NUR ---
ATE ALL OF SUPPER. DENIES NEEDS. NO CHANGES NOTED. AT BEDSIDE.
--- NOTE | 2018-04-09 19:32 | NUR ---
PT ALERT WITH FAMLY PRESENT BED IS LOW SRX2 AND CALL LIGHT IS IN REACH...RT AC NO REDNESS NO EDEMA D5 NS AT 125... LCTA AND SKIN IS WARM AND DRY DENIES PAIN OR NEEDS AT THIS TIME TELEMETRY SHOWING A SR
[2018-04-09 19:34] VITALS: BP 107/66
--- NOTE | 2018-04-09 21:35 | NUR ---
FAMILY LEFT AND I TURNED ON LUISA ALARM PT DENIES NEEDS AT THIS TIME
[2018-04-09 23:35] VITALS: BP 103/61
--- NOTE | 2018-04-09 23:49 | NUR ---
THE PATIENT APPEARS TO BE SLEEPING. IVS ARE LABELED AND RUNNING WELL. THE PATIENT APPEARS COMFORTABLE.
[2018-04-10 04:00] VITALS: BP 114/56
[2018-04-10 06:07] LABS: BASOPHILS 0.3 % (0-2); EOSINOPHILS 0.3 % (0-7); HEMATOCRIT 32.9 % (36.0-48.0); HEMOGLOBIN 11.1 g/dL (12-16); IMMATURE GRANULOCYTES 0.2 % (0-5); LYMPHOCYTES 28.2 % (15-50); MCH 29.8 pg (26.0-34.0); MCHC 33.7 g/dL (31.0-37.0); MCV 88.4 fL (80.0-100.0); MEAN PLATELET VOLUME 9.8 fL (7.4-10.4); RBC 3.72 10x6/uL (4.00-5.40); RDW 14.4 % (11.5-14.5); WBC 6.5 10x3/uL (4.8-10.8)
[2018-04-10 06:09] LABS: PLATELET COUNT 243 10x3/uL (130-400)
[2018-04-10 06:40] LABS: ALBUMIN 2.4 g/dL (3.4-5.0); ALKALINE PHOSPHATASE 43 U/L (46-116); ALT (SGPT) 69 U/L (10-68); BILIRUBIN - TOTAL 0.29 mg/dL (0.2-1.3); CALC OSMOLALITY 276 mosm/kg (275-300); CARBON DIOXIDE 23.5 mmol/L (21.0-32.0); CHLORIDE - SERUM 106 mmol/L (98-107); CREATININE - SERUM 0.8 mg/dL (0.6-1.3); GLUCOSE 117 mg/dL (74-106); MAGNESIUM - SERUM 1.6 mg/dL (1.8-2.4); PROTEIN - SERUM 5.7 g/dL (6.4-8.2); SODIUM 139 mmol/L (136-145); UREA NITROGEN 7 mg/dL (7-18); eGFR NON AFRICAN AMERICAN 77 mL/min (90-120)
[2018-04-10 06:53] LABS: CALCIUM 6.8 mg/dL (8.5-10.1); POTASSIUM - SERUM 2.8 mmol/L (3.5-5.1)
[2018-04-10 08:39] VITALS: BP 117/69
[2018-04-10 12:00] VITALS: BP 116/70
--- NOTE | 2018-04-10 12:37 | NUR ---
ALERT AND ORIENTED WITH POTASSIUM GIVEN PER PROTOCOL. IVF INFUSING AT PRESCRIBED RATED. FALL PROTOCOL IN PLACE. TELEMETRY INTACT. ENCOURAGED TO USE CALL LIGHT FOR ASSSIT WITH FAMILY PRESENT.
[2018-04-10 16:00] VITALS: BP 118/73
[2018-04-10 20:00] VITALS: BP 104/73
--- NOTE | 2018-04-10 22:00 | NUR ---
PT ALERT & ORIENTED. MINIMAL ASSIST UP TO BATHROOM. GAIT STEADY. GAVE SCHEDULED MEDS. COMPLETE ASSESSMENT PER FLOW-SHEET. AT BEDSIDE. WILL CONTINUE TO MONITOR.
[2018-04-11] VITALS: BP 114/71
[2018-04-11 04:00] VITALS: BP 116/68
[2018-04-11 05:12] LABS: BASOPHILS 0.6 % (0-2); EOSINOPHILS 0.5 % (0-7); HEMATOCRIT 32.8 % (36.0-48.0); IMMATURE GRANULOCYTES 0.3 % (0-5); LYMPHOCYTES 29.2 % (15-50); MCH 29.9 pg (26.0-34.0); MCHC 33.5 g/dL (31.0-37.0); MCV 89.1 fL (80.0-100.0); MEAN PLATELET VOLUME 9.4 fL (7.4-10.4); MONOCYTES 8.6 % (2-11); NEUTROPHILS 60.8 % (40-80); PLATELET COUNT 265 10x3/uL (130-400); RBC 3.68 10x6/uL (4.00-5.40); RDW 14.4 % (11.5-14.5); WBC 6.2 10x3/uL (4.8-10.8)
[2018-04-11 05:20] LABS: ALBUMIN 2.5 g/dL (3.4-5.0); ALKALINE PHOSPHATASE 40 U/L (46-116); BILIRUBIN - TOTAL 0.37 mg/dL (0.2-1.3); CARBON DIOXIDE 26.6 mmol/L (21.0-32.0); CHLORIDE - SERUM 106 mmol/L (98-107); CREATININE - SERUM 0.8 mg/dL (0.6-1.3); GLUCOSE 118 mg/dL (74-106); POTASSIUM - SERUM 3.6 mmol/L (3.5-5.1); PROTEIN - SERUM 5.7 g/dL (6.4-8.2); SODIUM 140 mmol/L (136-145); eGFR NON AFRICAN AMERICAN 77 mL/min (90-120)
[2018-04-11 05:21] LABS: ALT (SGPT) 95 U/L (10-68); CALC OSMOLALITY 278 mosm/kg (275-300); MAGNESIUM - SERUM 2.1 mg/dL (1.8-2.4); UREA NITROGEN 9 mg/dL (7-18)
[2018-04-11 07:55] VITALS: BP 117/74
--- NOTE | 2018-04-11 08:37 | NUR ---
PATIENT RESTING IN BED WITH NO NEEDS VOICED, STATES SHE PLANS ON AMBULATING SOON. CL IN REACH
[2018-04-11] MEDS ORDERED: THERMOTABS 1 GM1 GM PO (12:27)
[2018-04-11] MEDS ORDERED: K-DUR20 MEQ PO (12:27)
[2018-04-11] MEDS ORDERED: LEXAPRO20 MG PO (12:27)
[2018-04-11] MEDS ORDERED: MAG-OX 400 MG400 MG PO (12:28)
[2018-04-11] MEDS ORDERED: COLACE100 MG PO (12:28)
[2018-04-11] MEDS ORDERED: SYNTHROID25 MCG PO (12:28)
[2018-04-11] MEDS ORDERED: MEGACE40 MG PO (12:28)
[2018-04-11] MEDS ORDERED: FLORINEF 0.1 M0.1 MG PO (12:28)
[2018-04-11] MEDS ORDERED: CORTEF10 MG PO (12:29)
[2018-04-11] MEDS ORDERED: CORTEF 5 MG TAB5 MG PO (12:30)
[2018-04-11] MEDS ORDERED: Nicoderm [PBKC] TRANSDERM (12:31)
[2018-04-11] MEDS ORDERED: MARINOL2.5 MG PO (12:31)
[2018-04-11 13:00] VITALS: BP 122/76
--- NOTE | 2018-04-11 13:44 | NUR ---
SPOKE WITH KALEB IN CASE MANAGMENT, JULIUS WILL GET PATIENT SET UP WITH HOME HEALTH.
--- NOTE | 2018-04-11 15:22 | NUR ---
DC HOME AT THIS TIME INSTRUCTION GIVEN TO PT AND HUBSAND WHICH IS AT BEDSIDE. IV DC. VOICE UNDERSTANDING OF DC ORDERS. C/L IN REACH AT BEDSIDE. C/L IN REACH AT BEDSIDE.
--- NOTE | 2018-04-11 15:52 | MORECARE ---
CASE MANAGEMENT DISCHARGE SUMMARY PATIENT: SUSY HAM BRIAN UNIT: [id number] ADM DATE: 04/03/18 AGE: 62 : 59 SEX: F ROOM/BED: D.2207 AUTHOR: GERMANIA BARRERA PHYSICIAN: REFERRING PHYSICIAN: TED HWANG MD DATE OF SERVICE: 04/11/18 Discharge Plan Patient Name: SUSY HAM Facility: [facility]:[place] : 1955 Planned Disposition: Home Anticipated Discharge Date: Discharge Date: 04/11/2018 Expected LOS: Initial Reviewer: [email or web address] Initial Review Date: 04/05/2018 Generated: 04/11/18 4:52 pm Comments DCP- Discharge Planning Updated by [email or web address]: Samia Ching on 04/11/18 2:[address] CM met with patient, spouse, son to discuss any dc needs. Patient states she does not want HHS and her assist her with anything she needs help with. Patient states she will use her walker when she gets home. Spouse will assist her with her medications. Consent to deny service signed, along with IMM per , Jovanni Ham. Spouse will drive patient home and product picker any new medications. Voices no new needs at this time. Samia Ching RN, CM DCP- Discharge Planning Updated by [email or web address]: Herlinda Jacobo on 04/05/18 2:[address] CM spoke with patient and spouse, Jovanni Ham. She lives home with , and she works at [employer] in [place]. She is independent with ADL's, drives. She does report she has a walker at home. Denies need for home health services at this time. Pt had kyphoplasty on Apr 02. She has a history of malignant melanoma and having chemo. At last hospitalization had EGD which showed ulcers. She was prescribed PPI by GI. Her mother recently passed and she was at her visitation and got lethargic and ultimately combative. Ambulance was called and she was admitted to hospital. reports she has not been taking her Ensure or Pedialyte consistently. They deny needs at this time. Case management will continue to follow and assist as needed. DCPIA - Discharge Planning Initial Assessment Updated by [email or web address]: Herlinda Jacobo on 04/05/18 3:18 pm * Is the patient Alert and Oriented? Yes * How many steps to enter\exit or inside your home? 1/0 * PCP Dr. Borrero * Pharmacy [facility] * Preadmission Environment Home with Family * ADLs Independent * Equipment Walker * List name and contact numbers for known caregivers / representatives who currently or will assist patient after discharge: Jovanni Ham, * Verbal permission to speak to the caregivers and representatives has been obtained from the patient. Yes * Additional services required to return to the preadmission environment? No * Can the patient safely return to the preadmission environment? Yes * Has this patient been hospitalized within the prior 30 days at any hospital? Yes Last DP export: 04/05/18 2:36 pm Patient Name: SUSY HAM Page 37140 at 1552 All edits/amendments must be made on the electronic document DICTATION DATE: 04/11/181550 CASER UP: CARRIE 04/11/181550 RPT#: [id number] DC DATE:04/11/18 STATUS: DIS IN [facility] [address] [place] [address] END OF REPORT
--- NOTE | 2018-04-12 11:58 | MORECARE ---
CASE MANAGEMENT DISCHARGE SUMMARY PATIENT: SUSY HAM BRIAN UNIT: [id number] ADM DATE: 04/03/18 AGE: 62 : 59 SEX: F ROOM/BED: D.2207 AUTHOR: GERMANIA BARRERA PHYSICIAN: REFERRING PHYSICIAN: TED HWANG MD DATE OF SERVICE: 04/12/18 Discharge Plan Patient Name: SUSY HAM Facility: [facility]:[place] : 1955 Planned Disposition: Home Anticipated Discharge Date: Discharge Date: 04/11/2018 Expected LOS: 0 Initial Reviewer: [email or web address] Initial Review Date: 04/05/2018 Generated: 04/12/18 12:58 pm Comments DCP- Discharge Planning Updated by [email or web address]: Samia Ching on 04/11/18 2:[address] CM met with patient, spouse, son to discuss any dc needs. Patient states she does not want HHS and her assist her with anything she needs help with. Patient states she will use her walker when she gets home. Spouse will assist her with her medications. Consent to deny service signed, along with IMM per , Jovanni Ham. Spouse will drive patient home and cotton picking machine operator any new medications. Voices no new needs at this time. Samia Ching RN, CM DCP- Discharge Planning Updated by [id number]: Herlinda Jacobo on 04/05/18 2:[address] CM spoke with patient and spouse, Jovanni Ham. She lives home with , and she works at [employer] in [place]. She is independent with ADL's, drives. She does report she has a walker at home. Denies need for home health services at this time. Pt had kyphoplasty on Apr 02. She has a history of malignant melanoma and having chemo. At last hospitalization had EGD which showed ulcers. She was prescribed PPI by GI. Her mother recently passed and she was at her visitation and got lethargic and ultimately combative. Ambulance was called and she was admitted to hospital. reports she has not been taking her Ensure or Pedialyte consistently. They deny needs at this time. Case management will continue to follow and assist as needed. DCPIA - Discharge Planning Initial Assessment Updated by [email or web address]: Herlinda Jacobo on 04/05/18 3:18 pm * Is the patient Alert and Oriented? Yes * How many steps to enter\exit or inside your home? 1/0 * PCP Dr. Borrero * Pharmacy [facility] * Preadmission Environment Home with Family * ADLs Independent * Equipment Walker * List name and contact numbers for known caregivers / representatives who currently or will assist patient after discharge: Jovanni Ham, * Verbal permission to speak to the caregivers and representatives has been obtained from the patient. Yes * Additional services required to return to the preadmission environment? No * Can the patient safely return to the preadmission environment? Yes * Has this patient been hospitalized within the prior 30 days at any hospital? Yes Coverage Notice Reviewer: [email or web address] Mick Ching Notice Issued Date-Time: 04/11/2018 11:19 Notice Type: IM Admission Notice Notice Delivered To: Family Member Relationship to Patient: Spouse Occupational Work Experience Teacher Name: David Ham Delivery Method: - Pa[place] Days: Prior Verbal Notification: Recipient Understood Notice: Recipient Signature: Med Rec Note Co-signed by Attending: Coverage Notice Comment: Reviewer: [email or web address] Ching Notice Issued Date-Time: 04/11/2018 11:19 Notice Type: Patient Choice Letter Notice Delivered To: Family Member Relationship to Patient: Spouse Occupational Work Experience Teacher Name: David Ham Delivery Method: - [place] Days: Prior Verbal Notification: Recipient Understood Notice: Recipient Signature: Med Rec Note Co-signed by Attending: Coverage Notice Comment: Last DP export: 04/11/18 2:52 p Patient Name: SUSY HAM Page 16119 at 1158 All edits/amendments must be made on the electronic document DICTATION DATE: 04/12/18 1158 POWER REACTOR SUPERVISOR: CARRIE 04/12/18 1158 RPT#: [id number] DC DATE:04/11/18 STATUS: DIS IN [facility] [address] [place] [address] END OF REPORT
== END 2018-04-11 15:24 | disposition home or self-care (01) | DRG 643 ==
LOC: D.ER 09:40 → D.MS 12:35
PROVIDERS: Family Medicine; ADMIT Internal Medicine Nephrology
DX: E22.2 Syndrome of inappropriate secretion of antidiuretic hormone (principal); E43 Unspecified severe protein-calorie malnutrition; G93.40 Encephalopathy, unspecified; F17.213 Nicotine dependence, cigarettes, with withdrawal; C77.4 Secondary and unspecified malignant neoplasm of inguinal and lower limb lymph nodes; F32.2 Major depressive disorder, single episode, severe without psychotic features; E16.2 Hypoglycemia, unspecified; Z68.20 Body mass index [BMI] 20.0-20.9, adult; F32.9 Major depressive disorder, single episode, unspecified; E86.0 Dehydration; E83.42 Hypomagnesemia; I10 Essential (primary) hypertension; J44.9 Chronic obstructive pulmonary disease, unspecified; M81.0 Age-related osteoporosis without current pathological fracture; K29.70 Gastritis, unspecified, without bleeding; I95.9 Hypotension, unspecified

== ENCOUNTER 2018-11-02 06:54 | Day surgery (SDC) | payer OTHER ==
[~2018-11-02] VITALS: Ht 167.6 cm; Wt 62.6 kg
[~2018-11-02 06:54] MED LIST changes: +COLACE100 MG PO; +COREG 3.1253.125 MG PO; +CORTEF 5 MG TAB5 MG PO; +CORTEF10 MG PO; +FLORINEF 0.1 M0.1 MG PO; +K-DUR20 MEQ PO; +LEXAPRO20 MG PO; +MAG-OX 400 MG400 MG PO; +MARINOL2.5 MG PO; +MEGACE40 MG PO; +Nicoderm [PBKC] TRANSDERM; +PEPCID AC20 MG PO; +PRAVACHOL20 MG PO; +SYNTHROID25 MCG PO; +THERMOTABS 1 GM1 GM PO; +ULTRAM50 MG PO; +ZANAFLEX4 MG PO
[2018-11-02 07:32] LABS: ANION GAP 12.7 mmol/L (8-16); CALCIUM 8.8 mg/dL (8.5-10.1); CARBON DIOXIDE 27.4 mmol/L (21.0-32.0); CREATININE - SERUM 0.9 mg/dL (0.6-1.3); POTASSIUM - SERUM 4.1 mmol/L (3.5-5.1)
[2018-11-02 07:47] LABS: BASOPHILS 0.5 % (0-2); HEMATOCRIT 40.9 % (36.0-48.0); HEMOGLOBIN 13.6 g/dL (12-16); IMMATURE GRANULOCYTES 0.1 % (0-5); LYMPHOCYTES 34.7 % (15-50); MCH 32.2 pg (26.0-34.0); MCHC 33.3 g/dL (31.0-37.0); MCV 96.7 fL (80.0-100.0); MEAN PLATELET VOLUME 10.4 fL (7.4-10.4); MONOCYTES 9.6 % (2-11); NEUTROPHILS 42.1 % (40-80); RBC 4.23 10x6/uL (4.00-5.40); WBC 7.6 10x3/uL (4.8-10.8)
[2018-11-02 07:51] LABS: PLATELET COUNT 173 10x3/uL (130-400)
[2018-11-02 07:52] LABS: APTT 36.6 SECONDS (22.8-39.4); INR 1.05 (0.85-1.17); PROTIME 13.2 SECONDS (11.6-15.0)
[2018-11-02 08:58] VITALS: BP 150/79; Ht 167.6 cm; Wt 62.6 kg
[2018-11-02] MEDS ORDERED: HYDROCODON-ACE1 EA10 PO (10:16)
--- NOTE | 2018-11-02 12:29 | NUR ---
1219 IV DC'D. CATHETER TIP INTACT. NO BLEEDING AT SITE. BANDAID APPLIED.
--- NOTE | 2018-11-16 10:07 | OP ---
PATIENT NAME: SUSY HAM MEDICAL RECORD: [id number] :[birth year] LOCATION:D.OPS ADMISSION DATE: SURGEON: KEVIN DIAL MD DATE OF OPERATION: 11/02/2018 PREOPERATIVE DIAGNOSES: 1. Malignant melanoma. 2. Tobacco dependence syndrome. POSTOPERATIVE DIAGNOSES: 1. Malignant melanoma. 2. Tobacco dependence syndrome. PROCEDURE: Excision of right groin mass. SURGEON: Kevin Dial MD REPORT OF PROCEDURE: The patient's right groin was prepped and draped in sterile fashion. An oblique incision was made overlying the firm mass consistent with malignant melanoma. Electrocautery was used to dissect through the subcutaneous tissues and as we came around this mass at its most posterior aspect, we encountered some venous structures. The mass was so adherent to this, we ended up just having to take off the top layer of the venous structure, which did not appear to be the femoral vein. After this venous structure was unroofed, we were able to completely excise the mass and sent it off for permanent specimen. The mass itself was about 3.5 cm in greatest diameter. We then irrigated out the wound and placed clamps proximally and distally over the vein and oversewed the venous opening using a 7-0 Prolene. At the conclusion of this, we had no evidence of any further bleeding. We then inspected the area and any bleeding that was found was either treated with ties or electrocautery. The wound was irrigated out one last time. The subcutaneous tissues were reapproximated with interrupted 3-0 Vicryl and the skin was closed with running subcutaneous 5-0 Monocryl. A total of 10 mL of 0.25% Marcaine with epinephrine was infused into the surrounding tissues and the wound was dressed appropriately. COMPLICATIONS: None. CONDITION: Stable. ANESTHESIA: General endotracheal and local. BLOOD LOSS: 200 mL. TRANSINT:[id number] Voice Confirmation ID: [id number] DOCUMENT ID: [id number] KEVIN DIAL MD at 1007 CC: TUAN RAYO MD and MONSERRAT CANCHOLA [id number] DICTATION DATE: 11/02/18 1025 HAIRSPRING ASSEMBLER: 11/02/18 1033 [facility] 11/02/18 [place] [id number] [place] [address]
== END 2018-11-02 12:29 | disposition home or self-care (01) ==
LOC: D.OPS 06:54 → D.PAN 09:45 → D.OPS 10:00
PROVIDERS: ATTEND Surgery
DX: C43.59 Malignant melanoma of other part of trunk (principal); F17.200 Nicotine dependence, unspecified, uncomplicated

== ENCOUNTER 2018-12-10 11:24 | Inpatient (IN) | payer OTHER ==
[~2018-12-10] VITALS: Ht 167.6 cm; Wt 59.9 kg
[~2018-12-10 11:24] MED LIST changes: +HYDROCODON-ACE1 EA10 PO
[2018-12-10 11:56] LABS: BASOPHILS 0.5 % (0-2); EOSINOPHILS 33.6 % (0-7); HEMATOCRIT 50.7 % (36.0-48.0); HEMOGLOBIN 17.6 g/dL (12-16); IMMATURE GRANULOCYTES 0.5 % (0-5); LYMPHOCYTES 27.2 % (15-50); MCH 32.2 pg (26.0-34.0); MCHC 34.7 g/dL (31.0-37.0); MCV 92.9 fL (80.0-100.0); MEAN PLATELET VOLUME 10.9 fL (7.4-10.4); MONOCYTES 6.2 % (2-11); RBC 5.46 10x6/uL (4.00-5.40); RDW 13.8 % (11.5-14.5); WBC 13.1 10x3/uL (4.8-10.8)
[2018-12-10 11:58] LABS: PLATELET COUNT 281 10x3/uL (130-400)
[2018-12-10 12:15] LABS: ALBUMIN 3.4 g/dL (3.4-5.0); ALKALINE PHOSPHATASE 95 U/L (46-116); ALT (SGPT) 97 U/L (10-68); BILIRUBIN - TOTAL 0.31 mg/dL (0.2-1.3); CALCIUM 9.3 mg/dL (8.5-10.1); CARBON DIOXIDE 13.9 mmol/L (21.0-32.0); CHLORIDE - SERUM 92 mmol/L (98-107); LIPASE 120 U/L (73-393); POTASSIUM - SERUM 3.9 mmol/L (3.5-5.1); PROTEIN - SERUM 8.3 g/dL (6.4-8.2); SODIUM 132 mmol/L (136-145); TROPONIN-I < 0.017 ng/mL (0.000-0.060); UREA NITROGEN 35 mg/dL (7-18); eGFR NON AFRICAN AMERICAN 17 mL/min (90-120)
[2018-12-10 12:24] LABS: CALC OSMOLALITY 269 mosm/kg (275-300)
[2018-12-10 12:25] LABS: GLUCOSE 53 mg/dL (74-106)
[2018-12-10 12:44] LABS: APPEARANCE HAZY (CLEAR); BILIRUBIN NEGATIVE (NEGATIVE); COLOR YELLOW (YELLOW); GLUCOSE NEGATIVE (NEGATIVE); KETONE SMALL mg/dL (NEGATIVE); NITRITE NEGATIVE (NEGATIVE); PROTEIN 1+ mg/dL (NEGATIVE); SPECIFIC GRAVITY 1.025 (1.005-1.020); UROBILINOGEN NORMAL (NORMAL)
[2018-12-10 12:57] LABS: BACTERIA MODERATE /hpf (NEGATIVE); EPITHELIAL CELLS 0-5 /hpf (0-5); RED CELLS - URINE 0-5 /hpf (0-5)
[2018-12-10 13:56] VITALS: BP 107/66
--- NOTE | 2018-12-10 15:45 | NUR ---
RECEIVED TO ROOM 2226 VIA FROM ER. A/O X3. IN ROOM. SKIN INTACT WITHOUT REDNESS. NO NAUSEA AT THIS TIME.
[2018-12-10 15:52] VITALS: BP 103/70; BMI 22.4
[2018-12-10 16:06] VITALS: BP 103/70; BMI 22.4
--- NOTE | 2018-12-10 18:28 | MORECARE ---
CASE MANAGEMENT DISCHARGE SUMMARY PATIENT: SUSY HAM BRIAN UNIT: [id number] ADM DATE: 12/10/18 AGE: 63 : 59 SEX: F ROOM/BED: D.2226 AUTHOR: GERMANIA BARRERA PHYSICIAN: REFERRING PHYSICIAN: TED HWANG MD DATE OF SERVICE: 12/10/18 Discharge Plan Patient Name: SUSY HAM Facility: [facility]:[place] : 1955 Planned Disposition: Home Anticipated Discharge Date: 12/13/18 Discharge Date: Expected LOS: 3 Initial Reviewer: [email or web address] Initial Review Date: 12/10/2018 Generated: 12/10/18 7:28 pm Patient Name: SUSY HAM Page 02501 at 1828 All edits/amendments must be made on the electronic document DICTATION DATE: 12/10/181827 COMMODITIES BROKER: CARRIE 12/10/181827 RPT#: [id number] DC DATE: STATUS: ADM IN [facility] [address] [place] [address] END OF REPORT
--- NOTE | 2018-12-10 18:41 | MORECARE ---
CASE MANAGEMENT DISCHARGE SUMMARY PATIENT: SUSY HAM BRIAN UNIT: [id number] ADM DATE: 12/10/18 AGE: 63 : 59 SEX: F ROOM/BED: D.2226 AUTHOR: BRUCE,DOC PHYSICIAN: REFERRING PHYSICIAN: TED HWANG MD DATE OF SERVICE: 12/10/18 Discharge Plan Patient Name: SUSY HAM Facility: [facility]:[place] : 1955 Planned Disposition: Home Anticipated Discharge Date: 12/13/18 Discharge Date: Expected LOS: 3 Initial Reviewer: [email or web address] Initial Review Date: 12/10/2018 Generated: 12/10/18 7:41 pm DCP- Discharge Planning Updated by [email or web address]: Lydia Herrera on 12/10/18 5:[address] DC PLAN: Return home with her . ANTICIPATED DC NEEDS: Denied dc needs. CM met with patient to complete initial dc planning assessment. CM educated patient on the CM role and verbal consent given by patient to complete assessment. CM verified patient's address, phone number, and emergency contact phone numbers. Patient lives at home with her and reports she is able to care for herself but her cooks. At discharge patient plans to return home and feels this is a safe discharge. CM discussed availability of home health, rehab services, and medical equipment. Patient denied known discharge needs at this time. Patient reports her will transport her home at time of discharge. CM will continue to follow and will assist as needed with dc plans/needs. Lydia Herrera RN, [facility] DCPIA - Discharge Planning Initial Assessment Updated by [email or web address]: Lydia Herrera on 12/10/18 6:28 pm * Is the patient Alert and Oriented? Yes * How many steps to enter\exit or inside your home? one * PCP Dr. Borrero * Pharmacy [facility] in [place] * Preadmission Environment Home with Family * ADLs Independent * Equipment Rolling Walker * List name and contact numbers for known caregivers / representatives who currently or will assist patient after discharge: Jovanni Ham - spouse - [phone] * Verbal permission to speak to the caregivers and representatives has been obtained from the patient. Yes * Community resources currently utilized None * Additional services required to return to the preadmission environment? No * Can the patient safely return to the preadmission environment? Yes * Has this patient been hospitalized within the prior 30 days at any hospital? No Last DP export: 12/10/18 5:28 Patient Name: SUSY HAM Page [id number] at 1841 All edits/amendments must be made on the electronic document DICTATION DATE: 12/10/181840 SINKER WINDER: CARRIE 12/10/181840 RPT#: [id number] DC DATE: STATUS: ADM IN [facility] [address] [place] [address] END OF REPORT
--- NOTE | 2018-12-10 19:15 | NUR ---
PATIENT ALERT AND ORIENTED. SEVERAL FAMILY MEMBERS IN ROOM. PATIENT STATES "MY BACK IS STARTING TO BOTHER ME BUT I DONT WANT ANY MEDICINE RIGHT NOW." HAS IV TO THE LEFT HAND THAT IS PATENT AND INFUSING D5ns @ 100. FAMILY STATES SOMEONE WILL STAY OVER NIGHT WITH PATIENT. DENIES FURTHER NEEDS AT THIS TIME. CALL LIGHT IN REACH. CPOC.
[2018-12-10 20:00] VITALS: BP 96/65
[2018-12-11] VITALS: BP 102/68
[2018-12-11 04:00] VITALS: BP 98/66
[2018-12-11 05:03] LABS: BASOPHILS 0.4 % (0-2); EOSINOPHILS 33.5 % (0-7); HEMATOCRIT 46.2 % (36.0-48.0); HEMOGLOBIN 15.7 g/dL (12-16); IMMATURE GRANULOCYTES 0.1 % (0-5); LYMPHOCYTES 14.6 % (15-50); MCH 31.5 pg (26.0-34.0); MCV 92.6 fL (80.0-100.0); MEAN PLATELET VOLUME 10.4 fL (7.4-10.4); NEUTROPHILS 46.4 % (40-80); RBC 4.99 10x6/uL (4.00-5.40); RDW 13.4 % (11.5-14.5)
[2018-12-11 05:11] LABS: PLATELET COUNT 198 10x3/uL (130-400); WBC 7.1 10x3/uL (4.8-10.8)
[2018-12-11 05:22] LABS: ANION GAP 18.3 mmol/L (8-16); CARBON DIOXIDE 19.2 mmol/L (21.0-32.0); CREATININE - SERUM 1.9 mg/dL (0.6-1.3); PHOSPHOROUS 4.7 mg/dL (2.5-4.9); POTASSIUM - SERUM 4.5 mmol/L (3.5-5.1)
[2018-12-11 08:41] VITALS: BP 102/66
[2018-12-11 09:32] VITALS: Ht 167.6 cm; Wt 59.9 kg
--- NOTE | 2018-12-11 10:13 | NUR ---
PT RESTING IN BED. NO SIGNS OF DISTRESS. IV TO LT HAND PATENT NO REDNESS OR TENDERNESS. ON TELEMETRY 83 SR. DENIES ANY FURTHER NEED AT THIS TIME. CALL LIGHT IN REACH. BED LOW POSITION. FAMILY AT BEDSIDE.
--- NOTE | 2018-12-11 13:09 | NUR ---
RESTING,WITHOUT NEEDS.CALL LIGHT IN REACH
[2018-12-11 14:19] VITALS: BP 119/67
[2018-12-11 20:00] VITALS: BP 134/85
--- NOTE | 2018-12-11 21:00 | NUR ---
A/O WITH NO SIGNS OF ACUTE DISTRESS, FAMILY AT BEDSIDE. IV TO THE LT HAND WITH NO REDNESS OR SWELLING. WAS LEAKING BUT STOPPED ONCE APPLIED NEW TAPE. DENIES ANY NEEDS AT THIS TIME. CONTINUE WITH PLAN OF CARE.
[2018-12-12] VITALS: BP 107/81
[2018-12-12 06:02] LABS: BASOPHILS 0.3 % (0-2); EOSINOPHILS 18.2 % (0-7); IMMATURE GRANULOCYTES 0.3 % (0-5); LYMPHOCYTES 27.8 % (15-50); MCHC 33.5 g/dL (31.0-37.0); MCV 92.4 fL (80.0-100.0); MEAN PLATELET VOLUME 10.6 fL (7.4-10.4); MONOCYTES 9.4 % (2-11); PLATELET COUNT 198 10x3/uL (130-400); RDW 13.6 % (11.5-14.5); WBC 6.1 10x3/uL (4.8-10.8)
[2018-12-12 06:03] LABS: HEMATOCRIT 36.7 % (36.0-48.0); HEMOGLOBIN 12.3 g/dL (12-16); RBC 3.97 10x6/uL (4.00-5.40)
[2018-12-12 06:17] LABS: CALCIUM 7.8 mg/dL (8.5-10.1); CARBON DIOXIDE 22.4 mmol/L (21.0-32.0); CHLORIDE - SERUM 107 mmol/L (98-107); MAGNESIUM - SERUM 1.8 mg/dL (1.8-2.4); SODIUM 140 mmol/L (136-145)
[2018-12-12 06:19] LABS: CALC OSMOLALITY 277 mosm/kg (275-300); CREATININE - SERUM 0.8 mg/dL (0.6-1.3); GLUCOSE 101 mg/dL (74-106); PHOSPHOROUS 1.8 mg/dL (2.5-4.9); POTASSIUM - SERUM 3.6 mmol/L (3.5-5.1); UREA NITROGEN 9 mg/dL (7-18); eGFR NON AFRICAN AMERICAN 77 mL/min (90-120)
[2018-12-12 07:59] VITALS: BP 106/73
[2018-12-12 14:17] VITALS: BP 125/80
[2018-12-12] MEDS ORDERED: LEVOFLOXACIN500 MG PO (14:37)
--- NOTE | 2018-12-12 15:06 | MORECARE ---
CASE MANAGEMENT DISCHARGE SUMMARY PATIENT: SUSY HAM BRIAN UNIT: [id number] ADM DATE: 12/10/18 AGE: 63 : 59 SEX: F ROOM/BED: D.2226 AUTHOR: BRUCE,DOC PHYSICIAN: REFERRING PHYSICIAN: TED HWANG MD DATE OF SERVICE: 12/12/18 Discharge Plan Patient Name: SUSY HAM Facility: [facility]:[place] : 1955 Planned Disposition: Home Anticipated Discharge Date: 12/13/18 Discharge Date: Expected LOS: 3 Initial Reviewer: [email or web address] Initial Review Date: 12/10/2018 Generated: 12/12/18 4:05 pm DCP- Discharge Planning Updated by [email or web address]: Lydia Herrera on 12/10/18 5:[address] DC PLAN: Return home with her . ANTICIPATED DC NEEDS: Denied dc needs. CM met with patient to complete initial dc planning assessment. CM educated patient on the CM role and verbal consent given by patient to complete assessment. CM verified patient's address, phone number, and emergency contact phone numbers. Patient lives at home with her and reports she is able to care for herself but her cooks. At discharge patient plans to return home and feels this is a safe discharge. CM discussed availability of home health, rehab services, and medical equipment. Patient denied known discharge needs at this time. Patient reports her will transport her home at time of discharge. CM will continue to follow and will assist as needed with dc plans/needs. Lydia Herrera RN, [facility] DCPIA - Discharge Planning Initial Assessment Updated by [email or web address]: Lydia Herrera on 12/10/18 6:28 pm * Is the patient Alert and Oriented? Yes * How many steps to enter\exit or inside your home? one * PCP Dr. Borrero * Pharmacy [facility] in [place] * Preadmission Environment Home with Family * ADLs Independent * Equipment Rolling Walker * List name and contact numbers for known caregivers / representatives who currently or will assist patient after discharge: Jovanni Ham - spouse - [phone] * Verbal permission to speak to the caregivers and representatives has been obtained from the patient. Yes * Community resources currently utilized None * Additional services required to return to the preadmission environment? No * Can the patient safely return to the preadmission environment? Yes * Has this patient been hospitalized within the prior 30 days at any hospital? No Last DP export: 12/10/18 5:41 Patient Name: SUSY HAM Page [id number] at 1506 All edits/amendments must be made on the electronic document DICTATION DATE: 12/12/181504 CONSUMER SERVICES ADVISOR: CARRIE 12/12/181504 RPT#: [id number] DC DATE: STATUS: ADM IN [facility] [address] [place] [address] END OF REPORT
--- NOTE | 2018-12-12 15:11 | NUR ---
PT RESTING IN BED. NO SIGNS OF DISTRESS. IV TO RIGHT HAND PATENT NO REDNESS OR TENDERENESS. ON TELEMETRY 74 SR. DENIES ANY FURTHER NEED AT THIS TIME. CALL LIGHT IN REACH BED LOW POSITION. FAMILY AT BEDSIDE.
--- NOTE | 2018-12-12 15:52 | NUR ---
DISCHARGE INSTRUCTIONS GIVEN. SEEMS TO UNDERSTAND INSTRUCTIONS. IV OUT TIP INTACT. TELEMETRY OFF AND RETURNED. LEFT WITH HOSPITAL STAFF TO GO HOME IN PERSONAL RIDE WITH . NO SIGNS OF DISTRESS. DENIES ANY FURHTER NEED BEFORE LEAVING.
== END 2018-12-12 15:53 | disposition home or self-care (01) | DRG 683 ==
LOC: D.ER 11:24 → D.MS 15:09
PROVIDERS: Family Medicine; ADMIT Internal Medicine Nephrology; ATTEND Internal Medicine Nephrology
DX: N17.9 Acute kidney failure, unspecified (principal); N39.0 Urinary tract infection, site not specified; E87.1 Hypo-osmolality and hyponatremia; F17.203 Nicotine dependence unspecified, with withdrawal; E86.0 Dehydration; C43.59 Malignant melanoma of other part of trunk; I95.9 Hypotension, unspecified; J44.9 Chronic obstructive pulmonary disease, unspecified; I25.10 Atherosclerotic heart disease of native coronary artery without angina pectoris; I12.9 Hypertensive chronic kidney disease with stage 1 through stage 4 chronic kidney disease, or unspecified chronic kidney disease; N18.9 Chronic kidney disease, unspecified